=== PATIENT | female | born 1960 | race Caucasian/White ===

== ENCOUNTER → 2018-03-18 10:23 | Outpatient (CLI) | payer OTHER, SELFPAY ==
--- NOTE | 2018-03-18 10:27 | XR_ITS ---
XR knee LT 4V HISTORY: ITS.REASON: left knee pain ORDERING PHYSICIAN: Andrés Dewitt MD PATIENT AGE: 58 years COMPARISON: 12/10/2015 FINDINGS: No fracture or dislocation. No lytic or blastic change. Normal mineralization. No significant arthritic changes evident. No other significant findings IMPRESSION: Negative Knee
== END ==
PROVIDERS: PCP Internal Medicine Adolescent Medicine; Visit Provider Orthopaedic Surgery
DX: M25.562 Pain in left knee (principal)
CPT/HCPCS: 73564

== ENCOUNTER 2018-06-06 10:00 | Outpatient (RCR) | payer OTHER, SELFPAY ==
--- NOTE | 2018-04-11 11:08 | HMH.PTOPEV ---
PT Outpatient Evaluation Rehab PT Outpatient Evaluation Start: 04/11/18 10:56 Freq: Status: Active Protocol: Document 04/11/18 10:56 RAJINDER (Rec: 04/11/18 11:08 RAJINDER [id number]) Electronically Signed By Johnny Zeng, PT 04/11/18 10:56 Outpatient Therapy Subjective History Subjective History Pt reports h/o chronic L knee pain beginning ~2-3 yrs ago. Pt reports undergoing L knee plica resection sx. in 2016 and recent steriod injection, both of which ' improved symptoms'. Pt reports L knee, medial patellar area, with prolonged walking and TKE. Chief Complaint Pain Stiff Clicks Swelling Weakness Symptom Type Ache Dull Symptoms Relieved By OTC Meds Prescription Meds Symptoms Aggravated By Physical Activity Walking Prior Functional Limitations Recreation Activity Walking Stairs Current Functional Limitations Recreation Activity Walking Stairs Symptom Description Intermittent Level of pain today (0-10) 2 Pain scale - at its best (0-10) 0 Pain scale - at its worst (0-10) 4 Hip/Knee Eval Gait Observation General Gait Pattern Observation Antalgic Gait Assistive Device Assistive Devices None / NA Palpation Tenderness left Knee Palpation Finding Tenderness Knee Palpation Overall Comment 2/4-medial plica/sx. scar tissue MMT bilateral Hip Flexion Strength Grade 4 Good Hip Abduction Strength Grade 4- Good- Hip Adduction Strength Grade 4- Good- Hip Extension Strength Grade 4- Good- Hip External Rotation Strength Grade 4- Good- Hip Internal Rotation Strength Grade 4- Good- Knee Extension Strength Grade 5 Normal Knee Flexion Strength Grade 4 Good ROM Knee Flexion Active Range of Motion ( 0-155 degrees) Knee ROM Reason Not Measured Within Functional Limits Effusion joint effusion knee exam standard left Mid - Patellar Circumerential Measure ( 34 cm) Special Tests Patellar Grind Test Positive Left Outpatient Therapy Assessment Impairments Problems/Impairmments Palpation Tenderness
--- NOTE | 2018-05-30 10:20 | HMH.RHREAS ---
Rehab Reassessment Rehab OP Re-assessment Start: 05/30/18 10:13 Freq: Status: Active Protocol: Document 05/30/18 10:13 RAJINDER (Rec: 05/30/18 10:19 RAJINDER [id number]) Electronically Signed By Johnny Zeng, PT 05/30/18 10:13 Rehab Re-assessment Subjective Subjective PT REPORTS IMPROVED L LE STRENGTH, FEELS '75%' BETTER SINCE I EVAL. PT REPORTS 2/10 L KNEE PAIN AT REST,AND 4-5/10 L KNEE PAIN ON VAS FOLLOWING TREADMILL WALKING >1 MILE Objective Objective Notes AROM B KNEE FLX WFL MMT L HIP ABD/ADD/EXT 4-4+/5 TTP L KNEE MEDIAL JT LINE 1-2/ 4 CIRCUMFERENTIAL EDEMA L KNEE MID-PATELLA 34CM Assessment Progress Assessment Progressing as Expected Assessment Notes PT W/IMPROVED STRENGTH AND TTP Patient goals met STG'S 2/5 LTG'S 28 Goals Not Met STG'S 01/10, LTG'S 8 Plan Plan PT TO CONTINUE W/SKILLED P.T. TO MAKE FURTHER IMPROVEMENTS WITH STRENGTH, TTP, AND GAIT TO ALLOW FOR OPTIMAL FUNCTION Frequency of Therapy 1X/WK Duration of therapy 1-3WKS Time and Billing Re-Eval Time 15 Re-Eval Billing Units 1 PHYSICIAN CERTIFICATION: I certify the specified therapy services for Sarai Dalton are required, authorized, and reviewed every 30 days.
== END 2018-06-06 10:01 | disposition home or self-care (01) ==
LOC: PT 10:00
PROVIDERS: Family Provider Internal Medicine Adolescent Medicine; PCP Internal Medicine Adolescent Medicine; Visit Provider Orthopaedic Surgery
DX: M25.562 Pain in left knee (principal)
CPT/HCPCS: 97010; 97014; 97016; 97033; 97035; 97110; 97163; 97164; G0283

== ENCOUNTER → 2018-07-09 09:17 | Outpatient (CLI) | payer OTHER, SELFPAY ==
[2018-07-09 10:42] LABS: Alanine Aminotransferase 26 U/L (12-78); Albumin Level 3.8 gm/dL (3.4-5.0); Albumin/Globulin Ratio 1.3 (1.1-1.8); Alkaline Phosphatase 88 U/L (46-116); Anion Gap 8.6 mEq/L (5-15); Aspartate Amino Transferase 20 U/L (15-37); Bilirubin,Total 0.2 mg/dL (0.2-1.0); Blood Urea Nitrogen 13 mg/dL (7-18); Calcium 9.3 mg/dL (8.5-10.1); Carbon Dioxide 31 mmol/L (21.0-32.0); Chloride 107 mmol/L (98-107); Chol/HDL Ratio 2.7 (1-3.5); Cholesterol 197 mg/dL (140-200); Creatinine,Serum 0.88 mg/dL (0.55-1.02); Estimated Glomerular Filt Rate 66 ml/min (>60); Free T4 (Free Thyroxine) 1.11 ng/dl (0.76-1.46); GFR (African American) 79 ML/MIN (>60); Glucose 88 mg/dL (74-106); HDL Cholesterol 72 mg/dL (29-89); LDL Cholesterol 110 mg/dL (0-130); Potassium 4.6 mmoL/L (3.5-5.1); Sodium 142 mmol/L (136-145); Thyroid Stimulating Hormone 1.12 uIU/ml (0.358-3.740); Total Protein,Serum 6.8 gm/dL (6.4-8.2); Triglycerides 76 mg/dL (30-200); VLDL Cholesterol 15 mg/dL (0-40)
[2018-07-10 07:09] LABS: Vitamin B12 638 pg/mL (232-1245)
[2018-07-10 19:09] LABS: Triiodothyronine (T3) Free 2.3 pg/mL (2.0-4.4)
[2018-07-12 15:25] LABS: Vitamin D 25 Hydroxy 31.7 ng/mL (30.0-100.0)
== END ==
PROVIDERS: PCP Internal Medicine Adolescent Medicine; Visit Provider Internal Medicine Endocrinology, Diabetes & Metabolism
DX: E03.8 Other specified hypothyroidism (principal); M81.8 Other osteoporosis without current pathological fracture; E53.8 Deficiency of other specified B group vitamins; E55.9 Vitamin D deficiency, unspecified
CPT/HCPCS: 36415; 80053; 80061; 82607; 82652; 84439; 84443; 84481

== ENCOUNTER → 2019-07-14 08:35 | Outpatient (CLI) | payer OTHER, SELFPAY ==
[2019-07-14 10:34] LABS: Alanine Aminotransferase 21 U/L (12-78); Albumin/Globulin Ratio 1.3 (1.1-1.8); Alkaline Phosphatase 68 U/L (46-116); Anion Gap 10.3 mEq/L (5-15); Aspartate Amino Transferase 18 U/L (15-37); Bilirubin,Total 0.2 mg/dL (0.2-1.0); Blood Urea Nitrogen 13 mg/dL (7-18); Calcium 9.4 mg/dL (8.5-10.1); Carbon Dioxide 33 mmol/L (21.0-32.0); Chloride 107 mmol/L (98-107); Cholesterol 195 mg/dL (140-200); Creatinine,Serum 0.87 mg/dL (0.55-1.02); Estimated Glomerular Filt Rate 66 ml/min (>60); Free T4 (Free Thyroxine) 1.07 ng/dl (0.76-1.46); GFR (African American) 80 ML/MIN (>60); Glucose 89 mg/dL (74-106); HDL Cholesterol 65 mg/dL (29-89); LDL Cholesterol 110 mg/dL (0-130); Potassium 4.3 mmoL/L (3.5-5.1); Sodium 146 mmol/L (136-145); T4 (Thyroxine) 10.5 ug/dl (4.7-13.3); Thyroid Stimulating Hormone 2.05 uIU/ml (0.358-3.740); Triglycerides 102 mg/dL (30-200); VLDL Cholesterol 20 mg/dL (0-40)
[2019-07-15 18:07] LABS: Triiodothyronine (T3) Free 2.5 pg/mL (2.0-4.4); Vitamin B12 448 pg/mL (232-1245); Vitamin D 25 Hydroxy 33.9 ng/mL (30.0-100.0)
== END ==
PROVIDERS: Visit Provider Internal Medicine Endocrinology, Diabetes & Metabolism
DX: E03.8 Other specified hypothyroidism (principal); E53.8 Deficiency of other specified B group vitamins; E55.9 Vitamin D deficiency, unspecified
CPT/HCPCS: 36415; 80053; 80061; 82607; 82652; 84436; 84439; 84443; 84481

== ENCOUNTER → 2019-12-25 08:29 | Outpatient (CLI) | payer OTHER, SELFPAY ==
--- NOTE | 2019-12-25 08:35 | MM_ITS ---
PROCEDURE: MM DIG SCREENING MAMM BI W/CAD CLINICAL INDICATION: SCREENING' There is a history of breast cancer patient's mother diagnosed after menopause and the patient's maternal aunt diagnosed after menopause. COMPARISON: Digital mammograms with CAD 03/27/2016 and 02/21/2014 TECHNIQUE: standard CC and MLO images and 3D Tomosynthesis was obtained. R2 CAD reviewed. FINDINGS: Moderate scattered fibroglandular densities are seen throughout both breasts and the findings are bilateral and symmetrical. There is no suspicious lesion and no suspicious microcalcifications. Ranjan images were reviewed. IMPRESSION: Moderate diffuse breast density with no suspicious lesions seen BI-RAD Category: 2 Benign Finding(s) FOLLOW-UP: 1YR 1 Year Follow-up (A letter has been sent to the patient regarding results of the study.) Dictated by: Dr. Bogdan Calderon MD 12/25/2019 14:[address] Bogdan Calderon MD in [place] 12/25/2019 14:51
== END ==
PROVIDERS: PCP Internal Medicine Adolescent Medicine; Visit Provider Internal Medicine Adolescent Medicine
DX: Z12.31 Encounter for screening mammogram for malignant neoplasm of breast (principal)
CPT/HCPCS: 77063; 77067

== ENCOUNTER → 2020-05-16 07:46 | Outpatient (CLI) | payer OTHER, SELFPAY ==
[2020-05-16 08:35] LABS: Basophils % 0.7 % (0.1-2.0); Eosinophils # 0.1 K/mm3 (0.0-0.4); Eosinophils % 1.2 % (0.1-12.0); Hematocrit 41.3 % (37.0-47.0); Hemoglobin 13.9 g/dL (12.2-16.2); Lymphocytes # 1.6 K/mm3 (0.7-4.5); Mean Corpuscular HGB Conc 33.7 g/dL (31.8-35.4); Mean Corpuscular Hemoglobin 30.5 pg (27.0-31.2); Mean Corpuscular Volume 90.6 fl (81-99); Mean Platelet Volume 8.1 fl (7.4-10.4); Monocytes # 0.2 K/mm3 (0.1-1.0); Monocytes % 5.5 % (1.7-9.3); Neutrophils # 2.2 K/mm3 (1.8-7.8); Neutrophils % 53.5 % (37.0-80.0); Platelet Count 164 K/mm3 (142-424); Red Blood Count 4.56 M/mm3 (4.20-5.40); White Blood Count 4.2 K/mm3 (4.8-10.8)
[2020-05-16 09:13] LABS: Chloride 105 mmol/L (98-107); Sodium 140 mmol/L (136-145)
[2020-05-16 09:14] LABS: Potassium 4.1 mmoL/L (3.5-5.1)
[2020-05-16 09:16] LABS: Alanine Aminotransferase 14 U/L (12-78); Albumin/Globulin Ratio 1.7 (1.1-1.8); Alkaline Phosphatase 62 U/L (38-126); Anion Gap 7.1 mEq/L (5-15); Aspartate Amino Transferase 27 U/L (14-36); Bilirubin,Total 0.3 mg/dl (0.2-1.3); Blood Urea Nitrogen 15 mg/dl (7-17); Carbon Dioxide 32 mmol/L (22.0-30.0); Cholesterol 185 mg/dl (140-200); Estimated Glomerular Filt Rate 63 ml/min (>60); GFR (African American) 77 ML/MIN (>60); Globulin 2.4 g/dL (1.3-3.2); Total Protein,Serum 6.4 g/dl (6.3-8.2); Triglycerides 84 mg/dl (30-150); VLDL Cholesterol 17 mg/dL (0-40)
[2020-05-16 09:17] LABS: Calcium 9.5 mg/dl (8.4-10.2); Chol/HDL Ratio 2.5 (1-3.5); Glucose 76 mg/dl (74-100); HDL Cholesterol 75 mg/dl (40-60)
[2020-05-16 09:28] LABS: Direct LDL Cholesterol 94.24 mg/dL (100-129)
[2020-05-16 09:32] LABS: Free T4 (Free Thyroxine) 1.16 ng/dl (0.78-2.19)
[2020-05-16 09:47] LABS: Thyroid Stimulating Hormone 2.71 uIU/mL (0.465-4.68)
[2020-05-16 09:51] LABS: 25-OH Vitamin D, Total 75.1 ng/mL (30-100)
[2020-05-18 08:50] LABS: Triiodothyronine (T3) Free 2.5 pg/mL (2.0-4.4)
[2020-05-21 11:20] LABS: T4 (Thyroxine) 7.3 ug/dl (5.53-11.0)
[2020-05-24 17:11] LABS: C-Telopeptide Serum 532 pg/mL (.)
== END ==
PROVIDERS: Visit Provider Internal Medicine Endocrinology, Diabetes & Metabolism
DX: E03.8 Other specified hypothyroidism (principal); E55.9 Vitamin D deficiency, unspecified; M81.8 Other osteoporosis without current pathological fracture
CPT/HCPCS: 36415; 80053; 80061; 82306; 82523; 84436; 84439; 84443; 84481; 84681; 85025

== ENCOUNTER → 2021-01-22 09:08 | Outpatient (CLI) | payer OTHER, SELFPAY ==
[2021-01-22 10:46] LABS: Free T4 (Free Thyroxine) 1.25 ng/dl (0.78-2.19)
[2021-01-22 10:47] LABS: 25-OH Vitamin D, Total 61.2 ng/mL (30-100)
[2021-01-22 11:00] LABS: Thyroid Stimulating Hormone 1.28 uIU/mL (0.465-4.68)
[2021-01-23 11:39] LABS: Triiodothyronine (T3) Free 2.1 pg/mL (2.0-4.4)
== END ==
PROVIDERS: Visit Provider Internal Medicine Adolescent Medicine
DX: E03.9 Hypothyroidism, unspecified (principal); E55.9 Vitamin D deficiency, unspecified
CPT/HCPCS: 36415; 82306; 84436; 84439; 84443; 84481

== ENCOUNTER → 2021-01-27 09:30 | Outpatient (CLI) | payer OTHER, SELFPAY | PROVIDERS: PCP Internal Medicine Adolescent Medicine; Visit Provider Orthopaedic Surgery | DX: Z20.822 Contact with and (suspected) exposure to COVID-19 (principal) | CPT/HCPCS: U0003 ==

== ENCOUNTER → 2021-07-10 08:47 | Outpatient (CLI) | payer OTHER, SELFPAY ==
--- NOTE | 2021-07-10 08:49 | XR_ITS ---
PROCEDURE: XR DEXA AXIAL SKELETON CLINICAL HISTORY: OSTEOPENIA AFTER MENOPAUSE COMPARISON: CR BONE3 BONE DENSITOMETRY(HIP:LT SPINE from 07/02/2017 FINDINGS: The right hip BMD is 0.556 with a T-score of -2.6. The left hip BMD is 0.561 with a T-score of -2.6. The lumbar spine BMD is 0.853 with a T-score of -1.8. Previously the lowest density was in the left hip with a T-score of -2.3 IMPRESSION: This patient is considered osteoporotic according to the World Health Organization criteria. Fracture risk is high. Treatment is advised. Based on these results a follow-up exam is recommended in 1 year. Dictated by: Alonso Duvall MD 07/10/2021 15:56 Alonso Duvall MD in [facility] 07/10/2021 15:56
== END ==
PROVIDERS: PCP Internal Medicine Adolescent Medicine; Visit Provider Internal Medicine Endocrinology, Diabetes & Metabolism
DX: M85.80 Other specified disorders of bone density and structure, unspecified site (principal)
CPT/HCPCS: 77080

== ENCOUNTER → 2021-07-24 08:00 | Outpatient (CLI) | payer OTHER, SELFPAY ==
[2021-07-24 09:56] LABS: Free T4 (Free Thyroxine) 1.31 ng/dl (0.78-2.19)
[2021-07-24 09:59] LABS: 25-OH Vitamin D, Total 62.5 ng/mL (30-100)
[2021-07-24 10:12] LABS: Thyroid Stimulating Hormone 2.03 uIU/mL (0.465-4.68)
[2021-07-25 10:45] LABS: Triiodothyronine (T3) Free 2.4 pg/mL (2.0-4.4)
== END ==
PROVIDERS: Visit Provider Internal Medicine Endocrinology, Diabetes & Metabolism
DX: E03.9 Hypothyroidism, unspecified (principal); E55.9 Vitamin D deficiency, unspecified
CPT/HCPCS: 36415; 82306; 84439; 84443; 84481

== ENCOUNTER → 2021-10-10 10:16 | Outpatient (CLI) | payer OTHER, SELFPAY ==
--- NOTE | 2021-10-10 10:23 | MM_ITS ---
PROCEDURE INFORMATION: Exam: MG Bilateral Screening 3D Mammography Exam date and time: 10/10/2021 10:23 AM Age: 61 years old Clinical indication: Encounter for screening mammogram for malignant neoplasm of breast. Positive family history of breast cancer: Mother and aunt TECHNIQUE: Imaging protocol: Bilateral screening tomosynthesis and 2D mammography including computer-aided detection (CAD) when performed. COMPARISON: 1. MG MM DIG SCREENING MAMM BI W/CAD 12/25/2019 8:43 AM 2. MG DMSB DIG MAMM-SCREEN FLORA 03/27/2016 10:28 AM FINDINGS: MAMMOGRAPHY: Breast composition: The breast tissue is composed of scattered areas of fibroglandular density. Mass: None. Architectural distortion: None. Calcifications: No suspicious calcifications. Asymmetric density: None. Skin thickening: None. Axillary adenopathy: None. IMPRESSION: No mammographic evidence of malignancy. Annual screening is recommended unless otherwise clinically indicated. ASSESSMENT: BI-RADS Category 1: Negative
== END ==
PROVIDERS: PCP Internal Medicine Adolescent Medicine; Visit Provider Internal Medicine Adolescent Medicine
DX: Z12.31 Encounter for screening mammogram for malignant neoplasm of breast (principal)
CPT/HCPCS: 77063; 77067

== ENCOUNTER → 2021-10-15 13:54 | Outpatient (CLI) | payer OTHER, SELFPAY | PROVIDERS: PCP Internal Medicine Adolescent Medicine; Visit Provider Nurse Practitioner | DX: Z20.822 Contact with and (suspected) exposure to COVID-19 (principal) | CPT/HCPCS: C9803; U0003; U0005 ==

== ENCOUNTER → 2021-10-16 11:21 | Outpatient (CLI) | payer OTHER, SELFPAY | PROVIDERS: PCP Internal Medicine Adolescent Medicine; Visit Provider Nurse Practitioner | DX: Z20.822 Contact with and (suspected) exposure to COVID-19 (principal) | CPT/HCPCS: C9803; U0003; U0005 ==

== ENCOUNTER → 2022-07-17 08:51 | Outpatient (CLI) | payer OTHER, SELFPAY ==
--- NOTE | 2022-07-17 08:58 | XR_ITS ---
FINAL REPORT TECHNIQUE: Bone densitometry calculations of the lumbar spine and left hip were obtained. CLINICAL HISTORY: . post menopausal COMPARISON: July 10, 2021 FINDINGS: DEXA BONE DENSITY AXIAL SKELETON Using L1-4, the bone mineral density of the spine is 0.896 g/cm2, corresponding to T-score of -1.4. Previously measured 0.853 g/cm2, corresponding to T-score of -1.8. Using the left hip, the bone mineral density of the femoral neck is 0.614 g/cm2, corresponding to a T-score of -2.7. Previously measured 0.561 g/cm2, corresponding to T-score of -2.6. NOTE: T-score: Standard deviation compared with peak bone mass of young adult mean. *Following the recommendations of the International Society of Bone Densitometry, classification of hip BMD is based on the lower of two T-scores; total hip or femoral neck. IMPRESSION: Osteoporosis: Lowest T-score is at or below -2.5. This patient's T-score meets the World Health Organization criteria for osteoporosis. These findings are stable since the prior exam. Reviewed, Interpreted and Dictated by Armando Cohen III, MD Transcribed by Natalia Finn Authenticated and [facility]
== END ==
PROVIDERS: PCP Internal Medicine Adolescent Medicine; Visit Provider Internal Medicine Endocrinology, Diabetes & Metabolism
DX: M81.0 Age-related osteoporosis without current pathological fracture (principal); E55.9 Vitamin D deficiency, unspecified; E03.9 Hypothyroidism, unspecified
CPT/HCPCS: 77080

== ENCOUNTER → 2022-07-23 08:53 | Outpatient (CLI) | payer OTHER, SELFPAY ==
[2022-07-23 10:29] LABS: Alanine Aminotransferase 13 U/L (12-78); Albumin Level 3.9 g/dl (3.5-5.0); Albumin/Globulin Ratio 1.6 (1.1-1.8); Alkaline Phosphatase 75 U/L (38-126); Anion Gap 13.9 mEq/L (5-15); Aspartate Amino Transferase 23 U/L (14-36); Blood Urea Nitrogen 11 mg/dl (7-17); Calcium 9.2 mg/dl (8.4-10.2); Carbon Dioxide 30 mmol/L (22.0-30.0); Chloride 103 mmol/L (98-107); Estimated Glomerular Filt Rate 84 ml/min (>60); GFR (African American) 102 ML/MIN (>60); Globulin 2.4 g/dL (1.3-3.2); Glucose 83 mg/dl (74-100); Potassium 3.9 mmoL/L (3.5-5.1); Sodium 143 mmol/L (136-145); Total Protein,Serum 6.3 g/dl (6.3-8.2)
[2022-07-23 10:34] LABS: Bilirubin,Total < 0.1 mg/dl (0.2-1.3)
[2022-07-23 10:44] LABS: 25-OH Vitamin D, Total 55.2 ng/mL (30-100)
[2022-07-23 10:45] LABS: Free T4 (Free Thyroxine) 1.17 ng/dl (0.78-2.19)
[2022-07-23 11:01] LABS: Thyroid Stimulating Hormone 2.07 uIU/mL (0.465-4.68)
[2022-07-24 09:15] LABS: Triiodothyronine (T3) Free 2.5 pg/mL (2.0-4.4)
== END ==
PROVIDERS: PCP Internal Medicine Adolescent Medicine; Visit Provider Internal Medicine Endocrinology, Diabetes & Metabolism
DX: E03.9 Hypothyroidism, unspecified (principal); E55.9 Vitamin D deficiency, unspecified; M81.0 Age-related osteoporosis without current pathological fracture
CPT/HCPCS: 36415; 80053; 82306; 84439; 84443; 84481

== ENCOUNTER → 2023-01-11 08:14 | Outpatient (CLI) | payer OTHER, SELFPAY ==
--- NOTE | 2023-01-11 08:23 | MM_ITS ---
PROCEDURE INFORMATION: Exam: MG Bilateral Screening 3D Mammography Exam date and time: 01/11/2023 8:26 AM Age: 62 years old Clinical indication: Screening examination TECHNIQUE: Imaging protocol: Bilateral Screening tomosynthesis and 2D mammography including computer-aided detection (CAD) when performed. COMPARISON: 1. MG MM DIG SCREENING MAMM BI W/CAD 10/10/2021 10:24 AM 2. MG MM DIG SCREENING MAMM BI W/CAD 12/25/2019 8:43 AM FINDINGS: MAMMOGRAPHY: Breast composition: There are scattered areas of fibroglandular density. Mass: None. Architectural distortion: None. Calcifications: No suspicious calcifications. Asymmetric density: None. Skin thickening: None. Axillary adenopathy: None. IMPRESSION: No mammographic evidence of malignancy. Annual screening is recommended unless otherwise clinically indicated. ASSESSMENT: BI-RADS Category 1: Negative
== END ==
PROVIDERS: PCP Internal Medicine Adolescent Medicine; Visit Provider Internal Medicine Adolescent Medicine
DX: Z12.31 Encounter for screening mammogram for malignant neoplasm of breast (principal)
CPT/HCPCS: 77063; 77067

== ENCOUNTER → 2023-08-04 09:04 | Outpatient (CLI) | payer MEDICARE, OTHER, SELFPAY ==
--- NOTE | 2023-08-04 09:46 | XR_ITS ---
FINAL REPORT TECHNIQUE: Bone densitometry calculations of the lumbar spine and left hip were obtained. CLINICAL HISTORY: osteoporosis, POST MENOPAUSAL COMPARISON: July 17, 2022 FINDINGS: Using L1-4, the bone mineral density of the spine is 0.866 g/cm2, corresponding to T-score of -1.6 and a Z score of 0.1. This is within the range of osteopenia. Worse from prior. Using the left hip, the bone mineral density of the femoral neck is 0.567 g/cm2, corresponding to a T-score of -3.1 and a Z-score of -1.8. This is within the range of osteoporosis. Worsened from prior. Using the right hip, the bone mineral density of the femoral neck is 0.547 g/cm2, corresponding to a T-score of -2.7 and a Z-score of -1.1. This is within the range of osteoporosis. Worsened from prior. NOTE: T-score: Standard deviation compared with peak bone mass of young adult mean. *Following the recommendations of the International Society of Bone densitometry, classification of hip BMD is based on the lower of two T-scores; total hip or femoral neck. IMPRESSION: 1. Bone mineral density of the lumbar spine within the range of osteopenia. 2. Bone mineral density of the bilateral hip within the range of osteoporosis. All findings are worse as compared to prior exam Reviewed, Interpreted and Dictated by Marylou Edmondson MD Transcribed by Darian Reddy Authenticated and . [facility]
== END ==
PROVIDERS: PCP Internal Medicine Adolescent Medicine; Visit Provider Internal Medicine Adolescent Medicine
DX: Z78.0 Asymptomatic menopausal state (principal); Z13.820 Encounter for screening for osteoporosis
CPT/HCPCS: 77080

== ENCOUNTER → 2023-08-09 07:29 | Outpatient (CLI) | payer MEDICARE, OTHER, SELFPAY ==
[2023-08-09 10:11] LABS: 25-OH Vitamin D, Total 75.4 ng/mL (30-100)
[2023-08-09 10:31] LABS: Chloride 108 mmol/L (98-107)
[2023-08-09 10:32] LABS: Potassium 4.3 mmoL/L (3.5-5.1); Sodium 142 mmol/L (136-145)
[2023-08-09 10:34] LABS: Alanine Aminotransferase 15 U/L (12-78); Alkaline Phosphatase 66 U/L (38-126); Anion Gap 8.3 mEq/L (5-15); Aspartate Amino Transferase 24 U/L (14-36); Blood Urea Nitrogen 14 mg/dl (7-17); Carbon Dioxide 30 mmol/L (22.0-30.0); Estimated Glomerular Filt Rate 72 ml/min (>60); GFR (African American) 87 ML/MIN (>60)
[2023-08-09 10:35] LABS: Albumin Level 3.7 g/dl (3.5-5.0); Albumin/Globulin Ratio 1.7 (1.1-1.8); Calcium 8.9 mg/dl (8.4-10.2); Globulin 2.2 g/dL (1.3-3.2); Glucose 85 mg/dl (74-100); Phosphorous 4.4 mg/dl (2.5-4.5); Total Protein,Serum 5.9 g/dl (6.3-8.2)
[2023-08-09 10:40] LABS: Bilirubin,Total < 0.1 mg/dl (0.2-1.3)
[2023-08-09 11:01] LABS: Thyroid Stimulating Hormone 2.41 uIU/mL (0.465-4.68)
[2023-08-09 11:57] LABS: Magnesium 1.9 mg/dl (1.6-2.3)
[2023-08-10 10:58] LABS: Triiodothyronine (T3) Free 2.4 pg/mL (2.0-4.4)
[2023-08-16 00:06] LABS: C-Telopeptide Serum 687 pg/mL (.)
== END ==
PROVIDERS: PCP Internal Medicine Adolescent Medicine; Visit Provider Internal Medicine Endocrinology, Diabetes & Metabolism
DX: E03.9 Hypothyroidism, unspecified (principal); E55.9 Vitamin D deficiency, unspecified; M81.0 Age-related osteoporosis without current pathological fracture
CPT/HCPCS: 36415; 80053; 82306; 82523; 83735; 84100; 84439; 84443; 84481

== ENCOUNTER 2023-11-09 08:57 | Outpatient (CLI) | payer MEDICARE, OTHER, SELFPAY ==
[2023-11-09] MEDS: DENOSUMAB 60 MG/ML SYRINGE SQ (09:17)
[2023-11-09 09:30] VITALS: BP 133/84; PULSE 78; RESP 18; TEMP 36.9; O2SAT 99
== END 2023-11-09 09:30 | disposition home or self-care (01) ==
LOC: INF 08:59
PROVIDERS: PCP Internal Medicine Adolescent Medicine; Visit Provider Internal Medicine Adolescent Medicine
DX: M81.0 Age-related osteoporosis without current pathological fracture (principal)
CPT/HCPCS: 96372; J0897

== ENCOUNTER 2024-05-10 08:52 | Outpatient (CLI) | payer MEDICARE, OTHER, SELFPAY ==
[2024-05-10 09:00] VITALS: BP 116/75; PULSE 82; RESP 18; TEMP 36.8; O2SAT 100
[2024-05-10] MEDS: DENOSUMAB 60 MG/ML SYRINGE SQ (09:01)
== END 2024-05-10 09:07 | disposition home or self-care (01) ==
LOC: INF 08:53
PROVIDERS: PCP Internal Medicine Adolescent Medicine; Visit Provider Internal Medicine Adolescent Medicine
DX: M81.0 Age-related osteoporosis without current pathological fracture (principal); Z79.620 Long term (current) use of immunosuppressive biologic
CPT/HCPCS: 96372; J0897

== ENCOUNTER 2024-08-04 08:49 | Outpatient (CLI) | payer MEDICARE, OTHER, SELFPAY ==
--- NOTE | 2024-08-04 08:52 | XR_ITS ---
FINAL REPORT TECHNIQUE: Bone densitometry calculations of the lumbar spine and left hip were obtained. CLINICAL HISTORY: SCREENING FINDINGS: Using L1-4, the bone mineral density of the spine is 0.90 g/cm2, corresponding to T-score of -1.3 Using the left hip, the bone mineral density of the femoral neck is 0.63 g/cm2, corresponding to a T-score of -2.5. Using the right hip, the bone mineral density of the femoral neck is 0.71 g/cm2, corresponding to a T-score of - 1.9. NOTE: T-score: Standard deviation compared with peak bone mass of young adult mean. *Following the recommendations of the International Society of Bone densitometry, classification of hip BMD is based on the lower of two T-scores; total hip or femoral neck. IMPRESSION: Diminished bone mineral density of the lumbar spine and right hip consistent with osteopenia. Osteoporosis of the left hip. Reviewed, Interpreted and Dictated by Josie Thomas MD Transcribed by Socorro Dominguez Authenticated and [facility]
== END 2024-08-04 23:59 | disposition home or self-care (01) ==
LOC: RAD 08:49
PROVIDERS: PCP Internal Medicine Adolescent Medicine; Visit Provider Internal Medicine Endocrinology, Diabetes & Metabolism
DX: M81.0 Age-related osteoporosis without current pathological fracture (principal)
CPT/HCPCS: 77080

== ENCOUNTER 2024-08-11 08:44 | Outpatient (CLI) | payer MEDICARE, OTHER, SELFPAY ==
[2024-08-11 09:59] LABS: Alanine Aminotransferase 21 U/L (12-78); Albumin Level 4.2 g/dl (3.5-5.0); Alkaline Phosphatase 61 U/L (38-126); Anion Gap 5.2 mEq/L (5-15); Aspartate Amino Transferase 31 U/L (14-36); Bilirubin,Total 0.4 mg/dl (0.2-1.3); Blood Urea Nitrogen 12 mg/dl (7-17); Calcium 9.8 mg/dl (8.4-10.2); Carbon Dioxide 32 mmol/L (22.0-30.0); Chloride 107 mmol/L (98-107); Estimated Glomerular Filt Rate 72 ml/min (>60); GFR (African American) 87 ML/MIN (>60); Globulin 2.1 g/dL (1.3-3.2); Glucose 85 mg/dl (74-100); Potassium 4.2 mmoL/L (3.5-5.1); Sodium 140 mmol/L (136-145); Total Protein,Serum 6.3 g/dl (6.3-8.2)
[2024-08-11 10:17] LABS: Free T4 (Free Thyroxine) 1.17 ng/dl (0.78-2.19)
[2024-08-11 10:18] LABS: 25-OH Vitamin D, Total 77.5 ng/mL (30-100)
[2024-08-11 10:32] LABS: Thyroid Stimulating Hormone 1.73 uIU/mL (0.465-4.68)
[2024-08-12 08:19] LABS: Triiodothyronine (T3) Free 2.9 pg/mL (2.0-4.4)
== END 2024-08-11 23:59 | disposition home or self-care (01) ==
LOC: LAB 08:49
PROVIDERS: PCP Internal Medicine Adolescent Medicine; Visit Provider Internal Medicine Endocrinology, Diabetes & Metabolism
DX: E03.9 Hypothyroidism, unspecified (principal); M81.0 Age-related osteoporosis without current pathological fracture; E55.9 Vitamin D deficiency, unspecified
CPT/HCPCS: 36415; 80053; 82306; 84439; 84443; 84481

== ENCOUNTER 2024-11-24 10:01 | Outpatient (CLI) | payer MEDICARE, OTHER, SELFPAY ==
[2024-11-24 10:10] VITALS: BP 121/72; PULSE 79; RESP 18; TEMP 36.3; O2SAT 98
[2024-11-24] MEDS: DENOSUMAB 60 MG/ML SYRINGE SUBCUT (10:15)
== END 2024-11-24 10:20 | disposition home or self-care (01) ==
LOC: INF 10:02
PROVIDERS: PCP Internal Medicine Adolescent Medicine; Visit Provider Internal Medicine Adolescent Medicine
DX: M81.0 Age-related osteoporosis without current pathological fracture (principal)
CPT/HCPCS: 96372; J0897

== ENCOUNTER 2025-05-25 09:58 | Outpatient (CLI) | payer MEDICARE, OTHER, SELFPAY ==
--- OUTSIDE RECORDS SUMMARY | 2025-02-10 17:30 | XMS_ITS ---
Author Organization [facility] Address [address] [place] [address] Care Team Providers Care Wire Threader Name Role Phone PeymanKendall Primary Care Provider Migration, Provider Unavailable Unavailable Allergies Allergen (clinical drug ingredient) Drug/Non Drug Allergy documented on EMR Reaction Allergy Type Onset Date Status povidone-iodine Betadine Unknown Drug Allergy A ctive REASON FOR VISIT [facility] To [facility] Conversion Encounter Medications Medication SIG (Take, Route, Frequency, Duration) Notes Start Date End Date Status LaMICtal 25 MG take 3 tablets twice a day orally 2 times a day; Duration: 90 days Active Medrol 4 MG as directed orally a s directed; Duration: 5 days 11/27/2024 Active Amoxicillin 875 MG 1 tab(s) orally 2 times a day; Duration: 10 day(s) 11/27/2024 Active Losartan Potassium 50 MG 1 tab(s) orally once a day; Duration: 90 days Active Noxswcrupd-ZBOT-Jfaq eine 50-325-40 MG 2 tabs orally twice a day; Duration: 90 days prn 10/23/2024 Active EpiPen 2-Meclhor 0.3 MG/0.3ML as directed intramuscularly once; Duration: 1 days 04/19/2024 Active Prolia 60 MG/ML as directed subcutaneously every 6 months; Duration: 12 days 10/18/2023 Active Ibuprofen 800 MG 1 tab(s) orally 3 times a day; Duration: 90 days Active Ambien 5 MG 1 tab(s) orally once a day (at bedtime); Duration: 90 days prn 04/14/2023 Active Synthroid 100 MCG 1 tab(s) orally once a day; Duration: 90 days Active Acyclovir 800 MG 1 tab(s) orally 5 times a day prn; Duration: 90 days prn 10/16/2015 Active Pepcid 20 MG 1 tab(s) orally 2 times a day; Duration: 90 days prn Active ZyrTEC Allergy 10 MG 1 tab(s) orally onc e a day prn; Duration: 90 days Active Flonase Allergy Relief 50 MCG/ACT 2 sprays intranasally once a day; Duration: 90 days 10/16/2015 Active Calcium Citrate 600-630MG 1 TAB(S) ORALLY 2 TIMES A DAY; Duration: 90 DAYS *Please review and pick correct strength-formulat ion from [employer] options. If intended option is not shown, discontinue and re-order from Quick Search* Active Vitamin D3 25 MCG 1 tab(s) orally once a day; Duration: 90 days Active PATADAY ONCE DAILY RELIEF 0.2% 1 GTT IN EACH AFFECTED EYE ONCE A DAY prn *Please review for potential replacement for e-prescription and drug interaction check* Active Centrum THERAPEUTIC MULTIPLE VITAMINS WITH MINERALS 1 TAB(S) ORALLY ONCE A DAY *Please review and pick correct strength-formulat ion from [employer] options. If intended option is not shown, discontinue and re-order from Quick Search* Active Acetaminophen ER 650 MG 1 tab orally prn Active Voltaren Arthritis Pain 1 % as directed applied topically 1-2 times a day Active Encounters Encounter Location Date Provider Diagnosis [facility] [place] [address] [facility] [address] [place] [address] 02/10/2025 Provider Migration Acute non-recurrent maxillary sinusitis J01.00 and Primary hypertension I10 Assessments Encounter Date Diagnosis (ICD Code) Assessment Notes Treatment Notes Treatment Clinical Notes Section Notes 02/10/2025 Acute non-recurrent maxillary sinusitis (ICD-10 - J01.00) 02/10/2025 Primary hypertension (ICD-10 - I10) Plan Of Treatment Medication Medication Name Sig Start Date Stop Date Notes Medrol 4 MG as directed orally a s directed; Duration: 5 days 11/27/2024 Amoxicillin 875 MG 1 tab(s) orally 2 ti mes a day; Duration: 10 day(s) 11/27/2024 Losartan Potassium 50 MG 1 tab(s) orally once a day; Duration: 90 days Next Appt Details Provider Name:Kendall Lamb Montykristi, 10/29/2025 09:00:00 AM, [address], [place], [address], Progress Notes * Asim ORDONEZOB: [birth year] (65 yo F)Acc No.[id number]:02/10/2025 Patient: Sarai WOOTEN Provider: Vania sims Migration :1960 A ge:64 Y S ex:Female Date:02/10/2025 Address:[address] [place] [address], [place], [id number] Pcp:Kendall Morley Subjective: * Chief Complaints: * [facility] . [facility] * Medical History: * Medications: T terry Voltaren Arthritis Pain 1 % Gel as directed applied topically 1-2 times a day , Taking Acetaminophen ER 650 MG Tablet Extended Release 1 tab orally prn , Taking Centrum THERAPEUTIC MULTIPLE VITAMINS WITH MINERALS TABLET 1 TAB(S) ORALLY ONCE A DAY , Notes to Pharmacist: *Please review and pick correct strength-formulation from [email or web address].despan options. If intended option is not shown, discontinue and re-order from Quick Search*, Taking PATADAY ONCE DAILY RELIEF 0.2% SOLUTION 1 GTT IN EACH AFFECTED EYE ONCE A DAY , Notes to Pharmacist: prn *Please review for potential replacement for e-prescription and drug interaction check*, Taking Vitamin D3 25 MCG Capsule 1 tab(s) orally once a day , Taking Calcium Citrate 600-630MG TABLET 1 TAB(S) ORALLY 2 TIMES A DAY , Notes to Pharmacist: *Please review and pick correct strength-formulation from [email or web address].despan options. If intended option is not shown, discontinue and re-order from Quick Search*, Taking Flonase Allergy Relief 50 MCG/ACT Suspension 2 sprays intranasally once a day , Taking ZyrTEC Allergy 10 MG Tablet 1 tab(s) orally once a day prn , Taking Pepcid 20 MG Tablet 1 tab(s) orally 2 times a day , Notes to Pharmacist: prn, Taking Acyclovir 800 MG Tablet 1 tab(s) orally 5 times a day prn , Notes to Pharmacist: prn, Taking Synthroid 100 MCG Tablet 1 tab(s) orally once a day , Taking Ambien 5 MG Tablet 1 tab(s) orally once a day (at bedtime) , Notes to Pharmacist: prn, Taking Ibuprofen 800 MG Tablet 1 tab(s) orally 3 times a day , Taking Prolia 60 MG/ML Solution Prefilled Syringe as directed subcutaneously every 6 months , Taking EpiPen 2-Melchor 0.3 MG/0.3ML Solution Auto-injector as directed intramuscularly once , Taking LaMICtal 25 MG Tablet take 3 tablets twice a day orally 2 times a day , Taking Ajayevgufb-JDKB-Hmioovgp 50-325-40 MG Tablet 2 tabs orally twice a day , Notes to Pharmacist: prn * Allergies: B etadine. Objective: * Vitals: Assessment: * Assessment: 1. A cute non-recurrent maxillary sinusitis - J01.00 (Primary) 2 . P rimary hypertension - I10 Plan: * Treatment: 2. P rimary hypertension Start Losartan Potassium Tablet, 50 MG, 1 tab(s), orally, once a day, 90 days, 90, Refills 1. ? * * Electronic signature of Prov ider Migration on 05/25/2025 at 10:02 AM EDT Sign off status: Pending * Provider: Vania sims Migration Date: 0 02/10/2025 Generated for Kana rees/John/Tonya on: 0 05/25/2025 10:02 AM EDT
--- OUTSIDE RECORDS SUMMARY | 2025-04-25 05:00 | XMS_ITS ---
Author Organization [facility] [place] Address [address] [place] [address] Care Team Providers Care Hollow Handle Knife Assembler Name Role Phone Kendall Morley Primary Care Provider Allergies Allergen (clinical drug ingredient) Drug/Non Drug Allergy documented on EMR Reaction Allergy Type Onset Date Status povidone-iodine Betadine Unknown Drug Allergy A ctive REASON FOR VISIT 6 month check up Medications Medication SIG (Take, Route, Frequency, Duration) Notes Start Date End Date Status LaMICtal 25 MG take 3 tablets twice a day orally 2 times a day; Duration: 90 days Active Cseyyvgomv-EJID-Xqab eine 50-325-40 MG 2 tabs orally twice a day; Duration: 90 days As needed prn 10/23/2024 Active Losartan Potassium 50 MG 1 tab(s) orally once a day; Duration: 90 days Active Terbinafine HCl 250 MG 1 tablet Orally Once a day; Duration: 90 days 04/25/2025 Active Ciprofloxacin-dexAME THasone 0.3-0.1 % 4 drops into affected ear Otic Twice a day; Duration: 7 days 04/25/2025 Active Ambien 5 MG 1 tab(s) orally once a day (at bedtime); Duration: 90 days prn 04/14/2023 Active Prolia 60 MG/ML as directed subcutaneously every 6 months; Duration: 12 days 10/18/2023 Active EpiPen 2-Melchor 0.3 MG/0.3ML as directed intramuscularly once; Duration: 1 days 04/19/2024 Active Acyclovir 800 MG 1 tab(s) orally 5 times a day prn; Duration: 90 days prn 10/16/2015 Active Synthroid 100 MCG 1 tab(s) orally once a day; Duration: 90 days Active Flonase Allergy Relief 50 MCG/ACT 2 sprays intranasally once a day; Duration: 90 days 10/16/2015 Active ZyrTEC Allergy 10 MG 1 tab(s) orally onc e a day prn; Duration: 90 days Active Pepcid 20 MG 1 tab(s) orally 2 times a day; Duration: 90 days prn Active Acetaminophen ER 650 MG 1 tab orally prn Active Centrum THERAPEUTIC MULTIPLE VITAMINS WITH MINERALS 1 TAB(S) ORALLY ONCE A DAY *Please review and pick correct strength-formulat ion from [employer] options. If intended option is not shown, discontinue and re-order from Quick Search* Active PATADAY ONCE DAILY RELIEF 0.2% 1 GTT IN EACH AFFECTED EYE ONCE A DAY prn *Please review for potential replacement for e-prescription and drug interaction check* Active Vitamin D3 25 MCG 1 tab(s) orally once a day; Duration: 90 days Active Calcium Citrate 600-630MG 1 TAB(S) ORALLY 2 TIMES A DAY; Duration: 90 DAYS *Please review and pick correct strength-formulat ion from [employer] options. If intended option is not shown, discontinue and re-order from Quick Search* Active Ibuprofen 800 MG 1 tab(s) orally 3 times a day; Duration: 90 days Active Voltaren Arthritis Pain 1 % as directed applied topically 1-2 times a day Active Vital Signs Temperature 97.7 degrees Fahrenheit 04/25/20 25 Blood pressure systolic 136 mm Hg 04/25/20 25 Blood pressure diastolic 72 mm Hg 025 Heart Rate 80 /min 04/25/2025 Height 5 ft 6 in in 04/25/2025 Weight 120 lbs 04/25/2025 BMI 19.37 kg/m2 04/25/2025 Encounters Encounter Location Date Provider Diagnosis [facility] [place] [address] [facility] [address] [place], [place] [address] 04/25/2025 Kendall Morley Primary hypertension I10 ; Seizure R56.9 ; Acquired hypothyroidism E03.9 ; Primary osteoarthritis involving multiple joints M15.0 ; Migraine-cluster headache syndrome G44.009 ; Onychomycosis B35.1 ; Otalgia, bilateral H92.03 and Routine medical exam Z00.00 Assessments Encounter Date Diagnosis (ICD Code) Assessment Notes Treatment Notes Treatment Clinical Notes Section Notes 04/25/2025 Primary hypertension (ICD-10 - I10) Overall doing very nicely, good blood pressure control. Renal function ordered for next lab draw. No concerns at this point. 04/25/2025 Seizure (ICD-10 - R56.9) Has had no spells recently. On lamotrigine. Not a contraindication to diving. Will check levels. 04/25/2025 Acquired hypothyroidism (ICD-10 - E03.9) Follows endocrinology, clinically euthyroid 04/25/2025 Primary osteoarthritis involving multiple joints (ICD-10 - M15.0) On ibuprofen. -orthopedic surgeon monitors and currently does not wish surgical intervention 04/25/2025 Migraine-cluster headache syndrome (ICD-10 - G44.009) Takes rare Fioricet. No changes in plan 04/25/2025 Onychomycosis (ICD-10 - B35.1) Has a history of tinea in her nails when she goes scuba diving for long periods, will prophylactically treat 04/25/2025 Otalgia, bilateral (ICD-10 - H92.03) 04/25/2025 Routine medical exam (ICD-10 - Z00.00) Up-to-date with screenings including mammogram, DEXA, colonoscopy and vaccines. is healthcare surrogate, 3/3 word recall. Depression screening negative. Lifelong non-smoker Plan Of Treatment Medication Medication Name Sig Start Date Stop Date Notes LaMICtal 25 MG take 3 tablets twice a day orally 2 times a day; Duration: 90 days Fgfcwmlqea-AYFN-Waaqwyws 50-325-40 MG 2 tabs orally twice a day; Duration: 90 days 10/23/2024 prn Losartan Potassium 50 MG 1 tab(s) orally once a day; Duration: 90 days Terbinafine HCl 250 MG 1 tablet Orally O nce a day; Duration: 90 days 04/25/2025 Ciprofloxacin-dexAMETHasone 0.3-0.1 % 4 drops into affected ear Otic Twice a day; Duration: 7 days 04/25/2025 Ibuprofen 800 MG 1 tab(s) orally 3 ti mes a day; Duration: 90 days Treatment Notes Assessment Notes Primary hypertension Overall doing very nicely, good blood pressure control. Renal function ordered for next lab draw. No concerns at this point. Seizure Has had no spells recently. On lamotrigine. Not a contraindication to diving. Will check levels. Acquired hypothyroidism Follows endocrin ology, clinically euthyroid Primary osteoarthritis invol ving multiple joints On ibuprofen. -orthopedic surgeon monitors and currently does not wish surgical intervention Migraine-cluster headache syndrome Takes rare Fioricet. No changes in plan Onychomycosis Has a history of tin ea in her nails when she goes scuba diving for long periods, will prophylactically treat Routine medical exam Up-to-date with screenings including mammogram, DEXA, colonoscopy and vaccines. is healthcare surrogate, 3/3 word recall. Depression screening negative. Lifelong non-smoker Pending Test Test Name Order Date M-Complete Blood Count Auto Diff 025 M-Comprehensive Metabolic Panel 04/25/20 25 M-Lipid Panel 04/25/2025 M-Lamotrigine (Lamictal) 04/25/2025 Next Appt Details Follow Up: prn,6 Months, Lund son: Provider Name:Kendall Morley, 10/29/2025 09:00:00 AM, [address], [address], [place], [address], Progress Notes * Asim ORDONEZOB: [birth year] (65 yo F)Acc No.[id number]:04/25/2025 Progress Notes Patient: Sarai WOOTEN Provider: Jaime Morley MD :[id number] A ge:65 Y S ex:Female Date:04/25/2025 Address:[address] [place] [address] [place], [id number] Subjective: * Chief Complaints: * 1 . 6 month check up. * HPI: g en: Patient is here for follow-up of multiple medical problems and to go over his own Medicare wellness status. Overall feels good. Is planning to go to [facility] on a scuba driving trip with in May and feels like she need clearance for this. Has had no problems this in the past. Follows endocrinology with regular labs for lipid issues and her hypothyroidism. * ROS: F UNCTIONAL STATUS: ADLS I ndependent for all ADL/IADL. * Medical History: M igraine Headaches - use p.r.n. 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 * Surgical History: E ctopic right 04/07/1984, D&C miscarriage 09/27/1992, thyroidectomy right 01/25/1996, tubal ligation 01/25/1996, D&C polyp 06/29/1997, tonsillectomy 01/16/2011, Subscapularus Tendon Repair Left 04/01/2005, Knee scope 09/28/2017, Colonoscopy 12/2023. * Hospitalization/Major Diagno stic Procedure: s vickey 07/2008. * Family History: F ather: , lung cancer. M other: , type II diabetes, breast cancer. P aternal Grand Father: , stroke. P aternal Grand Mother: . M aternal Grand Father: . M aternal Grand Mother: . S iblings: alive. C hildren: alive.?1 brother(s) , 2 sister(s) . 3 son(s) . . * Social History: S moking A re you a:: nonsmoker. R ecreational drug use: no. Exercise: yes. Home smoke detector use: yes. Caffeine: yes, frequency: 2 -3 cups a day. Living Will: No. Alcohol: socially. Sexually active: yes. Travel outside [place]: yes, [place]. Occupation: housewife. * Medications: T aking Voltaren Arthritis Pain 1 % Gel as directed applied topically 1-2 times a day , Taking Acetaminophen ER 650 MG Tablet Extended Release 1 tab orally prn , Taking Centrum THERAPEUTIC MULTIPLE VITAMINS WITH MINERALS TABLET 1 TAB(S) ORALLY ONCE A DAY , Notes to Pharmacist: *Please review and pick correct strength-formulation from [employer] options. If intended option is not shown, [...] *Please review and pick correct strength-formulation from [employer] options. If intended option is not shown, [...] orally 2 times a day , Taking Ovtbqmmawj-LZFU-Kpjnaame 50-325-40 MG Tablet 2 tabs orally twice a day , Notes to Pharmacist: prn, Taking Losartan Potassium 50 MG Tablet 1 tab(s) orally once a day , Discontinued Amoxicillin 875 MG Tablet 1 tab(s) orally 2 times a day , Discontinued Medrol 4 MG Tablet Therapy Pack as directed orally as directed , Medication List reviewed and reconciled with the patient * Allergies: B etadine. Objective: * Vitals: N urse: be, Pain: 2, Temp: 97.7, RR: 16, HR: 80, BP: 136/72, Ht: 5 ft 6 in, Wt: 120, BMI:19.37. * Examination: G eneral Examination: General P leasant and Cooperative, NAD on RA,. Oral cavity: M oist membranes. Chest: n ormal shape and expansion. Heart: R egular Rate and Rhythm, no murmur, rubs or gallops. HEENT: p harynx and tonsils normal, TM's normal. Lungs: L CTAB, No wheezes, crackles or rhonchi, Good air movement,. Abdomen: S oft, NTND, BSNA, No organomegaly or peritoneal signs.. Neurologic Exam: n o focal signs,, normal sensation, strength, tone and reflexes,, Alert and oriented x 3. Skin: w ithout acute rashes. Peripheral pulses: n ormal (2+) bilaterally. Back: n ormal,. Extremities: n ormal ROM,, no clubbing, no edema,, no foot lesions,. neck s upple,, no thyromegaly,, no lymphadenopathy,. Psych N ormal Mood/Affect. diabetic foot exam V isual exam of foot performed: Y es. Neck s upple, no lymphadenopathy. General Appearance: N AD, pleasant. Assessment: * Assessment: 1. P rimary hypertension - I10 (Primary) 2 . S eizure - R56.9 ?3. A cquired hypothyroidism - E03.9 4 . P rimary osteoarthritis involving multiple joints - M15.0 5 . M igraine-cluster headache syndrome - G44.009 6 . O nychomycosis - B35.1 7 . O talgia, bilateral - H92.03 8 . R outine medical exam - Z00.00 Plan: * Treatment: 2. S eizure Refill LaMICtal Tablet, 25 MG, take 3 tablets twice a day, orally, 2 times a day, 90 days, 180, Refills 3. L AB: M-Complete Blood Count Auto Diff L AB: M-Comprehensive Metabolic Panel L AB: M-Lipid Panel L AB: M-Lamotrigine (Lamictal) Notes: Has had no spells recently. On lamotrigine. Not a contraindication to diving. Will check levels. 3. A cquired hypothyroidism L AB: M-Complete Blood Count Auto Diff L AB: M-Comprehensive Metabolic Panel L AB: M-Lipid Panel L AB: M-Lamotrigine (Lamictal) Notes: Follows endocrinology, clinically euthyroid 4. P rimary osteoarthritis involving multiple joints Refill Ibuprofen Tablet, 800 MG, 1 tab(s), orally, 3 times a day, 90 days, 270, Refills 3. ? L AB: M-Complete Blood Count Auto Diff L AB: M-Comprehensive Metabolic Panel L AB: M-Lipid Panel L AB: M-Lamotrigine (Lamictal) Notes: On ibuprofen. -orthopedic surgeon monitors and currently does not wish surgical intervention 5. M igraine-cluster headache syndrome Refill Krnifwknet-MJGP-Ccseikkl Tablet, 50-325-40 MG, 2 tabs, orally, twice a day As needed, 90 days, 180, Refills 1, Notes to Pharmacist: prn. Notes: Takes rare Fioricet. No changes in plan 6. O nychomycosis Start Terbinafine HCl Tablet, 250 MG, 1 tablet, Orally, Once a day, 90 days, 90 Tablet, Refills 0.? Notes: Has a history of tinea in her nails when she goes scuba diving for long periods, will prophylactically treat 7. O talgia, bilateral Start Ciprofloxacin-dexAMETHasone Suspension, 0.3-0.1 %, 4 drops into affected ear, Otic, Twice a day, 7 days, 1, Refills 1. 8. R outine medical exam Notes: Up-to-date with screenings including mammogram, DEXA, colonoscopy and vaccines. is healthcare surrogate, 3/3 word recall. Depression screening negative. Lifelong non-smoker * Procedure Codes: G 0439 ANNUAL WELLNESS VST; PPS SUBSQT VST, 1170F FUNCTIONAL STATUS ASSESSMENT, G8399 PT W/DXA DOCUMENT OR ORDER, 1123F ADVANCED DIRECTIVE - HAS A LIVING WILL, G9899 Screening diagnostic,film,digital results documented and reviewed, 3017F COLORECTAL CA SCREEN DOC REV, G8420 BMI documented as normal, no follow up required., G8510 NEGATIVE SCREENING F/U NOT REQUIRED, G9903 Pt scrn tbco id as non user, 1036F TOBACCO NON-USER, G8797 Most recent systolic blood pressure < 140mmhg, G8754 Most recent diastolic blood pressure < 90mmhg, G9744 PATIENT NOT ELIG D/T ACTIVE DX HTN * Follow Up: p rn,6 Months * * Sign off status: Completed true * Provider: Jaime Morley MD Date: 04/25/2025 Generated for Paulettei negrita/John/eTransmitting on: 05/25/2025 10:03 AM EDT History and Physical Notes * Examination Category Sub-Category Detail Notes Category Not es General Examination HEENT: pharynx and tonsils normal, TM's normal Neck supple, no lymphaden opathy Heart: Regular Rate and Rhy thm, no murmur, rubs or gallops Lungs: LCTAB, No wheezes, c rackles or rhonchi, Good air movement, Abdomen: Soft, NTND, BSNA, No organomegaly or peritoneal signs. Extremities: normal ROM,, no club yony, no edema,, no foot lesions, General Appearance: NAD, pleasant Skin: without acute rashes Neurologic Exam: no focal signs,, nor mal sensation, strength, tone and reflexes,, Alert and oriented x 3 Oral cavity: Moist membranes Peripheral pulses: normal (2+) bilatera lly Back: normal, Chest: normal shape and exp ansion neck supple,, no thyromeg mercy,, no lymphadenopathy, General Pleasant and Coopera tive, NAD on RA, Psych Normal Mood/Affect diabetic foot exam Visual exam of foot performed :: Yes
--- OUTSIDE RECORDS SUMMARY | 2025-05-23 10:00 | XMS_ITS | Encounter Summary ---
Author Organization [facility] Address [address] [id number] Care Team Providers Care Intel Analyst Name Role Phone Kendall Morley MD Primary Care Provider + [phone] Reason for Visit * Reason Comments Routine Oral Cleaning Encounter Details Date Type Department Care Team ([facility] Contact Info) Description 05/23/2025 10:00 AM EDT Office Visit [facility] [address] [place] [id number] Ginna Michelle Dental calculus (Primary Dx) Social History Tobacco Use Types Packs/Day Years Used Date Smoking Tobacco: Never Comments Unknown Sex and Gender Information Value Date Recorded Sex Assigned at Female 05/27/2023 10:19 AM EDT Legal Sex Female 6:11 PM EDT Gender Identity Not on file Sexual Orientation Not on file documented as of this encounter Last Filed Vital Signs Vital Sign Reading Time Taken Comments Blood Pressure 136/85 05/23/2025 10:02 AM EDT Pulse 66 05/23/2025 10:02 AM EDT Temperature - - Respiratory Rate - - Oxygen Saturation - - Inhaled Oxygen Concentration - - Weight - - Height - - Body Mass Index - - documented in this encounter Plan of Treatment Upcoming Encounters Date Type Department Care Team ([facility] Contact Info) Description 11/27/2025 11:00 AM EST Office Visit [facility] [address] [place] [id number] Ginna Michelle Scheduled Orders Name Type Priority Associated Diagnoses Orde r Schedule Full Full PROPHYLAXIS - ADULT Dental Routine [address] arting 05/23/2025 PERIODIC ORAL EVALUATION - ESTABLISHED PATIENT Dental Routine 1 Occurren issa starting 05/23/2025 documented as of this encounter Procedures Procedure Name Priority Date/Time Associated Diagnosis Comments PROPHYLAXIS - ADULT Routine 05/23/2025 1 0:00 AM EDT Dental calculus PERIODIC ORAL EVALUATION - ESTABLISHED PATIENT Routine 05/23/2025 10:00 AM EDT Dental calculus documented in this encounter Visit Diagnoses Diagnosis Dental calculus- Primary Accretions on teeth documented in this encounter Additional Health Concerns Assessment Noted Time A fall risk assessment has been complete d for the patient 05/27/2023 10:34 AM EDT A Body Mass Index follow-up plan has been documented for the patient 05/23/2025 12:01 PM EDT documented as of this encounter Care Teams Intel Analyst Relationship Specialty Start Date End Date Kendall Morley MD [address] [place] [address] PCP - General 03/21/21 documented as of this encounter
--- OUTSIDE RECORDS SUMMARY | 2025-05-25 10:00 | XMS_ITS | Continuity of Care Document ---
Author Name [facility] Organization [facility] Care Team Providers Care Imaging Specialist Name Role Phone [facility] Unavailable Unavailable Problems Combined list of problems from Department of Defense and Veterans Affairs facilities. It does not include entries that were removed or entered in error. Problem Status Onset Date Problem Type Date of Resolution Comments Source CLASSIC MIGRAINE (WITH AURA) Active Condition DoD SEIZURE DISORDER Active Condition DoD fainting (syncope) Active Condition DoD decrease in consciousness [Sx] Active Condition DoD visit for: administrative purpose Inactive Condition DoD visit for: screening malignant neoplasm colon Active Condition see dictated note DoD PRESBYOPIA Active Condition ok to use OTC readers +1.75 DoD HYPERTHYROIDISM Inactive Condition DoD HYPOTHYROIDISM Active Condition stii gettingoo much thyroid P: cut 50 mcg thyroid in half and recheck thyroid panel in 6 weeks. Pt agrees DoD OSTEOPOROSIS Active Condition Calcium 1500 daily and Vit D 800 units a day DoD visit for: screening exam malignant neoplasm breast Active Condition DoD ROUTINE GYNECOLOGICAL EXAM WITH CERVICAL PAP SMEAR Inactive Condition DoD visit for: laboratory Active Condition DoD upper back pain (between shoulder blades) Active Condition DoD MUSCLE SPASM Active Condition DoD CERVICALGIA Active Condition DoD Other Physical Therapy Inactive Condition DoD OSTEOPENIA Active Condition Pt called me re: results of Dexa-scan which showed osteopenia. Pt had me pull up result of studyof scan which showed osteopenia. I gave pt BONIVA; she has taken 1 pill. Pt then wanted to debate with me the actual numbers which I did not want to do. My advice was to take the BONIVA Calcium 1000 mg a day and Vit. D 800 units a day and recheck Dexa-scan in 1 year DoD BENIGN SKIN NEOPLASM Active Condition Risks, benefits, alternatives reviewed - patient elects to proceed, informed consent signed, witnessed & on chart. Infiltrated with local - lidocaine with epi. Betadine swab x 3. 6mm punch. Specimen to path. Closed with 4-0 nylon simple interrupted x 2. Infection signs and wound care reviewed. RTC suture removal in 2 weeks. Patient agrees. No complications. DoD Macules And Papules Active Condition Benign appearing nevus on mid-back. Will schedule removal at patient request. Likely 6mm punch. DoD MIGRAINE HEADACHE Active Condition DoD visit for: issue repeat prescription for medication Active Condition DoD HYPOTHYROIDISM Active Condition DoD joint pain, localized in the shoulder Active Condition DoD Laboratory Studies Active Condition DoD Medications Combined list of outpatient medications from Department of Defense and Veterans Affairs facilities.Medications provided include 1) outpatient medications from the last 15 months, and 2) patient-reported medications. Medication Details Route Status Patient Instructions Prescription Expires Prescription Number Last Dispense Date Ordering Provider Order Date Order Qty Source BUTALBITAL- ACETAMINOPH EN-CAFFE (butalbital /acetaminop hen/caffein e), 50-325-40, TABLET, ORAL, PROFICIENT RX L, 100 ea. BOTTLE Cancele d [id number] : 2023 0 Pharmac y Data Transac tion Service Facilit y BUTALBITAL- ACETAMINOPH EN-CAFFE (butalbital /acetaminop hen/caffein e), 50-325-40, TABLET, ORAL, PROFICIENT RX L, 100 ea. BOTTLE Active [id number] 2023 360 Pharmac y Data Transac tion Service Facilit y EPINEPHRINE (epinephrin e), 0.3MG/0.3, AUTO INJCT, INJECTION, TEVA [place], 2 ea. SYRINGE Cancele d [id number] : 2023 0 Pharmac y Data Transac tion Service Facilit y METRONIDAZO LE (METRONIDAZ OLE), 500MG, TABLET, ORAL, PLIVA, INC, 500 ea. BOTTLE Active [id number] 2023 21 Pharmac y Data Transac tion Service Facilit y Allergies, Adverse Reactions, Alerts Combined list of allergies from Department of Defense and Veterans Affairs facilities. It does not include entries that were removed or entered in error. Substance Category Reaction Severity Reaction type Status Date Reported Comments Source BETADINE (POVIDONE-IO DINE) Drug allergy (disorder) Unknown active 03/22/2006 [facility] BETADINE (SOAP/POVIDO NE-IODINE) Drug allergy (disorder) Unknown active 03/30/2005 EMILY Ochoa Immunizations Combined list of available immunizations from the Department of Defense and Veterans Affairs facilities. Immunization Series Date Given Administered By Site Reaction Lot Number CVX Code Drug Grit Blaster Status Comments Source zoster recombinant 2021 ZACKARY, () Not Given zoster recombina nt DoD zoster recombinant 2020 NATE MIRELES, () Not Given zoster recombina nt DoD influenza, injectable, quadrivalent, preservative free 2019 LAUREN, () Not Given influenza , injectabl e, quadrival ent, preservat aris free DoD meningococcal MCV4P 2016 CHRISTIANNEAFAGIINES () Not Given meningoco ccal MCV4P DoD meningococcal MCV4P 2016 KHAFAGIAYJAYJAY () Not Given meningoco ccal MCV4P DoD meningococcal MCV4P 2016 KHAFAGIAYJAYJAY () Not Given meningoco ccal MCV4P DoD influenza, injectable, quadrivalent, preservative free 2016 CHRISTIANNEAFAGIAYJAYJAY () Not Given influenza , injectabl e, quadrival ent, preservat aris free DoD influenza virus vaccine, split virus (incl. purified surface antigen)-reti red CODE 1 2006 Unknown, Provider [id number] [employer] ([facility]) complet ed influenza virus vaccine, split virus (incl. purified surface antigen)- retired CODE DoD influenza virus vaccine, whole virus 1 2005 Unknown, Provider [id number] Sanofi Pasteur ([facility]) complet ed influenza virus vaccine, whole virus DoD influenza virus vaccine, whole virus 1 2004 Unknown, Provider [id number] 16 Sanofi Pasteur ([facility]) complet ed influenza virus vaccine, whole virus DoD influenza virus vaccine, whole virus 1 2002 Unknown, Provider [id number] 16 Sanofi Pasteur ([facility]) complet ed influenza virus vaccine, whole virus DoD influenza virus vaccine, whole virus 1 2001 Unknown, Provider [id number] 16 Sanofi Pasteur ([facility]) complet ed influenza virus vaccine, whole virus DoD Encounters Combined list of: 1) Encounters from Department of Veterans Affairs facilities going backup to the last 18 months, not all VA inpatient encounters are included; 2) Encounters from the Department of Defense facilities going backup to 280 months. Location Location Details Encounter Type Encounter Number Reason For Visit Attending Provider ADM Date DC Date Status Disposition Source Critical access hospital [facility] TELE CONSULT [id number] Green-f/ u appt HÉCTOR MUSA Enzo Melendez 03/22 [facility]) OUTPATIENT [id number] diandra crystal ruvalcabai on TEA STRINGER 04/12 Released w/o Limitations [facility] OUTPATIENT [id number] f up on meds for thyroid VIKI GREEN 04/12 Released w/o Limitations [facility] TELE CONSULT [id number] pcm kob. LONNIE OSEGUERA 06/24 [facility] OUTPATIENT [id number] f/u for migrain e headach es and mole. ZAK LANDA 08/17 Released w/o Limitations [facility] OUTPATIENT [id number] f/up on mole on back ZAK LANDA 09/13 Released w/o Limitations [facility]) OUTPATIENT [id number] CONSTANTINO GREEN 12/09 Released w/o Limitations [facility]) OUTPATIENT [id number] FREDDY MCGILL 12/16 Released w/o Limitations [facility] ) [facility]) OUTPATIENT [id number] Pt gets ELVISO BOBBY RODRIGUEZ 12/20 Released w/o Limitations [facility] [place] [place] OUTPATIENT [id number] DANITA WANG 12/24 Released w/o Limitations [facility] [place] [place] [place] [place]) OUTPATIENT [id number] pt gets nakita GREEN TY 12/28 Released w/o Limitations [facility] [place] [place]) OUTPATIENT [id number] IF and SOPHIA SU 01/04 Released w/o Limitations [facility] [place] [place]) OUTPATIENT [id number] LUCAS GREGORY 01/07 Released w/o Limitations [facility] [place] [place]) OUTPATIENT [id number] SOPIHA DUNCAN 01/10 Released w/o Limitations [facility] [place] [place] OUTPATIENT [id number] DANITA WANG 01/18 Released w/o Limitations [facility] [place] [place]) OUTPATIENT [id number] SOPHIA DUNCAN 01/21 Released w/o Limitations [facility] [place] [place] OUTPATIENT [id number] DANITA WANG 01/25 Released w/o Limitations [facility] [place] [place]) OUTPATIENT [id number] CHERYL AMOS 01/28 Released w/o Limitations [facility] [place] [place]) OUTPATIENT [id number] BOBBY RODRIGUEZ 02/08 Released w/o Limitations [facility] ) [facility]) OUTPATIENT [id number] SOPHIA DUNCAN 02/11 Released w/o Limitations [facility] TELE CONSULT [id number] pcm luis / lab work VIKI BOYLE 03/03 [facility]) OUTPATIENT [id number] annual pap MARY VILLEGAS 03/28 Released w/o Limitations EMILY Rodgers([facility]) [facility] OUTPATIENT [id number] f/u on thyroid /bone density / poss back x rays VIKI BOYLE 03/28 Released w/o Limitations [facility] TELE CONSULT [id number] Dexa Scan VIKI BOYLE 04/29 [facility]) [facility] TELE CONSULT [id number] VIKI BOYLE 05/12 [facility] OUTPATIENT [id number] per pt thyroid check, pt is concern ed with thyroid level TEA WARD 06/24 Released w/o Limitations [facility] TELE CONSULT [id number] PCM Basilia/l ab order JESUSITA CIFUENTES 07/12 [facility]) [facility]) OUTPATIENT [id number] walk in JESUSITA CIFUENTES 07/19 Released w/o Limitations [facility] [place] [place] TELE CONSULT [id number] lab results CARA GALLEGOSA 08/09 [facility] [place] [place] [place] [place] TELE CONSULT [id number] Basilia/ DENISE BRYANT 08/16 [facility] ) OUTPATIENT [id number] YEARLY EYE EXAM MONET SARAHHENRY Montiel 09/16 Released w/o Limitations [facility] [place] [place] [place] TELE CONSULT [id number] needs referra l to endocri nologis t for yearly check ANNA MARIE GALLEGOS 11/22 [facility] [place] [place] [place] OUTPATIENT [id number] cls screeni ng MONICA INGRAM 02/12 Released w/o Limitations [facility] [place] [place] OUTPATIENT [id number] cls MONICA INGRAM 02/13 Released w/o Limitations [facility] [place] TELE CONSULT [id number] PCM Basilia/ZAK Dean 03/21 [facility] [place] [facility]) OUTPATIENT [id number] ROUTINE PAP ELIO IGLESIAS 04/05 Released w/o Limitations [facility] [place](Jairo rology) OUTPATIENT [id number] Pas entered the order ZAID STARKEY 08/28 Released w/o Limitations [facility](N eurolog y) [facility](Jairo rology) TELE CONSULT [id number] can you do est over phone after eeg. can you fax visit note (see note) ZAID STARKEY 08/29 [facility](N eurolog y) [facility](Jairo rology) OUTPATIENT [id number] Pas entered the order ZAID STARKEY 10/08 Released w/o Limitations [facility](N eurolog y) [facility](Jairo rology) OUTPATIENT [id number] ZAID STARKEY 12/04 Released w/o Limitations [facility](N eurolog y) [facility](Jairo rology) OUTPATIENT [id number] f/u seizure est with ROSY Ricks 09/30 Released w/o Limitations [facility](N eurolog y) [address] [place] [address](Jairo rology) TELE CONSULT [id number] MRI Results ROSY ARBOLEDA 10/23 [facility](N eurolog y) [address] [place] [address](Jairo rology) TELE CONSULT [id number] mri 10 days ago plz call cell [phone] ROSY ARBOLEDA 10/28 [facility](N eurolog y) [address] [place] [address](Jairo roly) OUTPATIENT [id number] f/u ROSY ARBOLEDA 05/21 Released w/o Limitations [address] [place] [address](N eurolog y) Procedures Combined list of: 1) Procedures from Department of Veterans Affairs facilities going back up to thelast 18 months, not all VA non-surgical procedures are included; 2) All procedures from the Department of Defense facilities. Procedure Procedure Type Code Date Perfomer Comments [facility] e ELECTROENCEPHALOGRAM (EEG); INCLUDING RECORDING AWAKE AND DROWSY 12/04/2008 DoD ELECTROENCEPHALOGRAM (EEG); INCLUDING RECORDING AWAKE AND DROWSY 10/08/2008 [facility] UNILATERAL THYROID LOBECTOMY 01/26/1996 [facility] LYSIS OF PERITONEAL ADHESIONS 01/26/1996 [facility] OTHER BILATERAL ENDOSCOPIC DESTRUCTION OR OCCLUSION OF FALLOPIAN TUBES 01/26/1996 [facility] EPISIOTOMY 09/22/1993 [facility] DILATION AND CURETTAGE FOLLOWING DELIVERY OR 09/27/1992 [facility] CYTOPATHOLOGY, SMEARS, CERVICAL OR VAGINAL, UP TO THREE SMEARS; SCREENING BY CONCIERGE UNDER PHYSICIAN SUPERVISION 04/23/2000 DoD INJECTION, FENTANYL CITRATE, 0.1 MG 01/17/2004 DoD INJECTION, BUPIVICAINE HYDROCHLORIDE, 30 ML 09/03/2003 DoD INJECTION, FENTANYL CITRATE, 0.1 MG 03/09/2003 DoD PHYSICAL THERAPY RE-EVALUATION 09/26/2002 DoD RANGE OF MOTION MEASUREMENTS AND REPORT (SEPARATE PROCEDURE); EACH EXTREMITY (EXCLUDING HAND) OR EACH TRUNK SECTION (SPINE) 08/29/2002 DoD RANGE OF MOTION MEASUREMENTS AND REPORT (SEPARATE PROCEDURE); EACH EXTREMITY (EXCLUDING HAND) OR EACH TRUNK SECTION (SPINE) 08/01/2002 DoD RANGE OF MOTION MEASUREMENTS AND REPORT (SEPARATE PROCEDURE); EACH EXTREMITY (EXCLUDING HAND) OR EACH TRUNK SECTION (SPINE) 07/06/2002 DoD PHYSICAL THERAPY RE-EVALUATION 06/07/2002 DoD RANGE OF MOTION MEASUREMENTS AND REPORT (SEPARATE PROCEDURE); EACH EXTREMITY (EXCLUDING HAND) OR EACH TRUNK SECTION (SPINE) 05/16/2002 [facility] SCREENING PAPANICOLAOU SMEAR ; OBTAINING, PREPARING AND CONVEYANCE OF CERVICAL OR VAGINAL SMEAR TO LABORATORY 05/08/2002 [facility] REMOVAL OF SKIN TAGS, MULTIPLE FIBROCUTANEOUS TAGS, ANY AREA; UP TO AND INCLUDING 15 LESIONS 09/02/2001 [facility] SCREENING PAPANICOLAOU SMEAR ; OBTAINING, PREPARING AND CONVEYANCE OF CERVICAL OR VAGINAL SMEAR TO LABORATORY 04/05/2008 [facility] COLORECTAL CANCER SCREENING; COLONOSCOPY ON INDIVIDUAL NOT MEETING CRITERIA FOR HIGH RISK 02/14/2008 [facility] OPHTHALMOLOGICAL SERVICES: MEDICAL EXAMINATION AND EVALUATION WITH INITIATION OF DIAGNOSTIC AND TREATMENT PROGRAM; COMPREHENSIVE, NEW PATIENT, 1 OR MORE VISITS 09/16/2007 [facility] SCREENING PAPANICOLAOU SMEAR ; OBTAINING, PREPARING AND CONVEYANCE OF CERVICAL OR VAGINAL SMEAR TO LABORATORY 03/28/2007 [facility] APPLICATION OF A MODALITY TO 1 OR MORE AREAS; HOT OR COLD PACKS 02/11/2007 DoD APPLICATION OF A MODALITY TO 1 OR MORE AREAS; HOT OR COLD PACKS 02/08/2007 DoD APPLICATION OF A MODALITY TO 1 OR MORE AREAS; HOT OR COLD PACKS 01/28/2007 DoD APPLICATION OF A MODALITY TO 1 OR MORE AREAS; HOT OR COLD PACKS 01/25/2007 DoD APPLICATION OF A MODALITY TO 1 OR MORE AREAS; ULTRASOUND, EACH 15 MINUTES 01/21/2007 DoD APPLICATION OF A MODALITY TO 1 OR MORE AREAS; HOT OR COLD PACKS 01/18/2007 DoD APPLICATION OF A MODALITY TO 1 OR MORE AREAS; ELECTRICAL STIMULATION (MANUAL), EACH 15 MINUTES 01/10/2007 DoD APPLICATION OF A MODALITY TO 1 OR MORE AREAS; ULTRASOUND, EACH 15 MINUTES 01/07/2007 DoD APPLICATION OF A MODALITY TO 1 OR MORE AREAS; HOT OR COLD PACKS 01/04/2007 DoD APPLICATION OF A MODALITY TO 1 OR MORE AREAS; HOT OR COLD PACKS 12/28/2006 DoD APPLICATION OF A MODALITY TO 1 OR MORE AREAS; HOT OR COLD PACKS 12/24/2006 DoD APPLICATION OF A MODALITY TO 1 OR MORE AREAS; HOT OR COLD PACKS 12/20/2006 DoD APPLICATION OF A MODALITY TO 1 OR MORE AREAS; ULTRASOUND, EACH 15 MINUTES 12/16/2006 DoD APPLICATION OF A MODALITY TO 1 OR MORE AREAS; HOT OR COLD PACKS 12/09/2006 DoD BIOPSY OF SKIN, SUBCUTANEOUS TISSUE AND/OR MUCOUS MEMBRANE (INCLUDING SIMPLE CLOSURE), UNLESS OTHERWISE LISTED; SINGLE LESION 09/13/2006 [facility] ARTHROCENTESIS, ASPIRATION AND/OR INJECTION, MAJOR JOINT OR BURSA (EG, SHOULDER, HIP, KNEE, SUBACROMIAL BURSA); WITHOUT ULTRASOUND GUIDANCE 04/12/2006 DoD POSTOPERATIVE FOLLOW-UP VISIT, NORMALLY INCLUDED IN THE SURGICAL PACKAGE, INDICATE THAT EVALUATION & MANAGEMENT SERVICE WAS PERFORMED DURING A POSTOPERATIVE PERIOD REASON RELATED ORIGINAL PROCEDURE 07/20/2005 [facility] THERAPEUTIC PROCEDURE, 1 OR MORE AREAS, EACH 15 MINUTES; THERAPEUTIC EXERCISES TO DEVELOP STRENGTH AND ENDURANCE, RANGE OF MOTION AND FLEXIBILITY 07/02/2005 [facility] THERAPEUTIC PROCEDURE, 1 OR MORE AREAS, EACH 15 MINUTES; THERAPEUTIC EXERCISES TO DEVELOP STRENGTH AND ENDURANCE, RANGE OF MOTION AND FLEXIBILITY 06/30/2005 [facility] THERAPEUTIC PROCEDURE, 1 OR MORE AREAS, EACH 15 MINUTES; THERAPEUTIC EXERCISES TO DEVELOP STRENGTH AND ENDURANCE, RANGE OF MOTION AND FLEXIBILITY 06/25/2005 [facility] THERAPEUTIC PROCEDURE, 1 OR MORE AREAS, EACH 15 MINUTES; THERAPEUTIC EXERCISES TO DEVELOP STRENGTH AND ENDURANCE, RANGE OF MOTION AND FLEXIBILITY 06/23/2005 [facility] THERAPEUTIC PROCEDURE, 1 OR MORE AREAS, EACH 15 MINUTES; THERAPEUTIC EXERCISES TO DEVELOP STRENGTH AND ENDURANCE, RANGE OF MOTION AND FLEXIBILITY 06/16/2005 [facility] PHYSICAL THERAPY RE-EVALUATION 06/10/2005 [facility] POSTOPERATIVE FOLLOW-UP VISIT, NORMALLY INCLUDED IN THE SURGICAL PACKAGE, INDICATE THAT EVALUATION & MANAGEMENT SERVICE WAS PERFORMED DURING A POSTOPERATIVE PERIOD REASON RELATED ORIGINAL PROCEDURE 06/08/2005 [facility] THERAPEUTIC PROCEDURE, 1 OR MORE AREAS, EACH 15 MINUTES; THERAPEUTIC EXERCISES TO DEVELOP STRENGTH AND ENDURANCE, RANGE OF MOTION AND FLEXIBILITY 06/05/2005 DoD THERAPEUTIC PROCEDURE, 1 OR MORE AREAS, EACH 15 MINUTES; THERAPEUTIC EXERCISES TO DEVELOP STRENGTH AND ENDURANCE, RANGE OF MOTION AND FLEXIBILITY 06/03/2005 DoD THERAPEUTIC PROCEDURE, 1 OR MORE AREAS, EACH 15 MINUTES; THERAPEUTIC EXERCISES TO DEVELOP STRENGTH AND ENDURANCE, RANGE OF MOTION AND FLEXIBILITY 06/01/2005 DoD THERAPEUTIC PROCEDURE, 1 OR MORE AREAS, EACH 15 MINUTES; THERAPEUTIC EXERCISES TO DEVELOP STRENGTH AND ENDURANCE, RANGE OF MOTION AND FLEXIBILITY 05/22/2005 DoD THERAPEUTIC PROCEDURE, 1 OR MORE AREAS, EACH 15 MINUTES; THERAPEUTIC EXERCISES TO DEVELOP STRENGTH AND ENDURANCE, RANGE OF MOTION AND FLEXIBILITY 05/20/2005 [facility] PHYSICAL THERAPY RE-EVALUATION 05/15/2005 DoD POSTOPERATIVE FOLLOW-UP VISIT, NORMALLY INCLUDED IN THE SURGICAL PACKAGE, INDICATE THAT EVALUATION & MANAGEMENT SERVICE WAS PERFORMED DURING A POSTOPERATIVE PERIOD REASON RELATED ORIGINAL PROCEDURE 05/12/2005 DoD POSTOPERATIVE FOLLOW-UP VISIT, NORMALLY INCLUDED IN THE SURGICAL PACKAGE, INDICATE THAT EVALUATION & MANAGEMENT SERVICE WAS PERFORMED DURING A POSTOPERATIVE PERIOD REASON RELATED ORIGINAL PROCEDURE 04/28/2005 DoD EXERCISE EQUIPMENT 04/21/2005 Do D POSTOPERATIVE FOLLOW-UP VISIT, NORMALLY INCLUDED IN THE SURGICAL PACKAGE, INDICATE THAT EVALUATION & MANAGEMENT SERVICE WAS PERFORMED DURING A POSTOPERATIVE PERIOD REASON RELATED ORIGINAL PROCEDURE 04/15/2005 DoD PHYSICAL THERAPY EVALUATION 04/07/2005 [facility] UNLISTED SPECIAL SERVICE, PROCEDURE OR REPORT 04/01/2005 [facility] ARTHROCENTESIS, ASPIRATION AND/OR INJECTION, MAJOR JOINT OR BURSA (EG, SHOULDER, HIP, KNEE, SUBACROMIAL BURSA); WITHOUT ULTRASOUND GUIDANCE 01/19/2005 [facility] BLOOD,OCCULT,BY PEROXIDASE ACTIV (EG,GUAIAC),QUAL;FECES,CONSEC UTIVE COLLECTED SPECIMENS W SING DETERMIN,FOR COLORECTAL NEOPLAS SCREEN (IE,PAT PROVIDE 3 CARDS/SING TRIPLE CARD FOR CONSECUTIVE COLLECT) 12/11/2004 DoD APPLICATION OF SHORT ARM SPLINT (FOREARM TO HAND); STATIC 07/31/2004 DoD APPLICATION OF FINGER SPLINT ; STATIC 07/17/2004 DoD Social History Combined list of available smoking, tobacco, and other social history from Department of Defense and Veterans Affairs facilities. Social History Type Response Date Comment Sourc e This section is an empty social history section. DoD
--- OUTSIDE RECORDS SUMMARY | 2025-05-25 10:02 | XMS_ITS | Encounter Summary ---
Author Organization [place] [address] Care Team Providers Care Rubber Flap Cutter Name Role Phone Unavailable Primary Care Provider Unavailabl e Reason for Visit * Reason Comments Medication Refill Encounter Details Date Type Department Care Team (Late st Contact Info) Description 04/02/2025 Refill [facility] Physicians [facility] [address] [facility] [address] [place], [place] [phone] Billy Sarmiento MD [address] [place] [address] Medication Refill Social History Tobacco Use Types Packs/Day Years Used Date Smoking Tobacco: Never Smokeless Tobacco: Never Alcohol Use Standard Drinks/Week Comments Yes 0 (1 standard drink = 0.6 oz pure alcohol) About 2 half glasses of wine a month Sexually Active Control Partners Comments Yes Post-menopausal Male Comments Unknown Sex and Gender Information Value Date Recorded Sex Assigned at Not on file Legal Sex Female 2:15 PM EST Gender Identity Not on file Sexual Orientation Not on file documented as of this encounter Ordered Prescriptions Prescription Sig Dispense Quantity Refills Last Filled Start Date End Date LEVOthyroxine (SYNTHROID) 100 mcg Oral TabletIndications:H ypothyroidism (acquired) TAKE 1 TABLET DAILY 100 Tablet 1 04/04/2025 documented in this encounter Miscellaneous Notes * Telephone Encounter - Nichelle Jo CPhT - 04/04/2025 2:23 PM EDT SYNTHROID Future Visit: 08/20/25 Last Assessed Visit: 08/16/24 Follow-Up Date: 08/16/25 All protocols passed. Refills approved and sent to requesting pharmacy. Routed to [facility] if applicable. documented in this encounter Plan of Treatment Upcoming Encounters Date Type Department Care Team (Late st Contact Info) Description 08/20/2025 11:00 AM EDT Office Visit [facility] [address] [facility] [address] [place] [phone] Billy Sarmiento MD [address] [place] [address] documented as of this encounter Visit Diagnoses Diagnosis Hypothyroidism (acquired) Unspecified hypothyroidism documented in this encounter Discontinued Medications Medication Sig Discontinue Reason Start Date End Da te LEVOthyroxine (SYNTHROID) 100 mcg Oral TabletIndications:Hypoth yroidism (acquired) TAKE 1 TABLET DAILY 09/25/2024 04/04/20 documented as of this encounter Additional Health Concerns Assessment Noted Time A fall risk assessment has been complete d for the patient 08/12/2023 11:01 AM EDT documented as of this encounter
--- OUTSIDE RECORDS SUMMARY | 2025-05-25 10:02 | XMS_ITS | Clinical Summary ---
Author Organization [facility] Address [address] [place] [address] Phone Care Team Providers Care Campus Manager Name Role Phone Unavailable Primary Care Provider Unavailabl e Allergies Active Allergy Reactions Criticality Noted Date Comments Povidone-Iodine Other (See Comments) Low 03/30/2005 Skin irritation Soap Other (See Comments) 11/11/2017 Medications lamoTRIgine (LAMICTAL) 25 mg Oral Tablet Take 3 Tabs by mouth 2 times daily. 01/03/2021 Active ergocalciferol, vitamin D2, (VITAMIN D2 ORAL) Take by mouth. 9110-1632 mg daily Active calcium carbonate 650 mg calcium (1,625 mg) Oral Tablet Take 1 Tablet by mouth daily. Active cetirizine HCl (ZYRTEC ORAL) Take by mouth. PRN Active olopatadine (PATADAY) 0.2 % Opht Drops 1 Drop daily. Active famotidine (PEPCID ORAL) Take 10 mg by mouth. 1-3 times daily PRN Active ibuprofen (ADVIL;MOTRIN) 800 mg Oral Tablet Take 800 mg by mouth daily. 1-3 times daily Active butalb/acetamin ophen/caffeine (FIORICET ORAL) Take by mouth. Two tablets PRN Active losartan (COZAAR) 50 mg Oral Tablet Take 50 mg by mouth daily. 07/28/2023 Active CALCIUM CITRATE ORAL Take by mouth. Active fluticasone propionate (FLONASE NASL) 1 [place] by Nasal route as needed. Active LEVOthyroxine (SYNTHROID) 100 mcg Oral TabletIndicatio ns:Hypothyroidi sm (acquired) TAKE 1 TABLET DAILY 100 Tablet 1 04/04/2025 Active Active Problems Problem Noted Date Diagnosed Date Age-related osteoporosis wit hout current pathological fracture 07/30/2021 Hypothyroidism (acquired) 01/22/2021 Vitamin D deficiency 01/22/2021 Osteopenia after menopause 01/22/2021 Encounters Date Type Department Care Team Description 04/02/[address] [facility] [address] [address] Billy Sarmiento MD Medication Refill from Last 3 Months Surgical History Surgery Date Site/Laterality Comments THYROID SURGERY Medical History Medical History Date Comments Hypothyroidism Hyperthyroidism Seizure (HCC) Acute headache Osteopenia Family History Medical History Relation Name Comments Coronary Art Dis Father Armando High Blood Pressure Father Armando Anemia Mother Lorie Coronary Art Dis Mother Lorie Dementia Mother Lorie Elevated Lipids Mother Lorie High Blood Pressure Mother Lorie Osteoporosis Mother Lorie Thyroid Disease Mother Lorie Relation Name Status Comments Father Armando Mother Lorie Social History Tobacco Use Types Packs/Day Years Used Date Smoking Tobacco: Never Smokeless Tobacco: Never Tobacco Cessation:Counseling Given: Not Answered Alcohol Use Standard Drinks/Week Comments Yes 0 (1 standard drink = 0.6 oz pure alcohol) About 2 half glasses of wine a month Sexually Active Control Partners Comments Yes Post-menopausal Male Comments Unknown Sex and Gender Information Value Date Recorded Sex Assigned at Not on file Legal Sex Female 2:15 PM EST Gender Identity Not on file Sexual Orientation Not on file Obstetrics History Last Filed Vital Signs Vital Sign Reading Time Taken Comments Blood Pressure 138/82 08/16/2024 11:11 AM EDT Pulse 63 08/16/2024 11:11 AM EDT Temperature - - Respiratory Rate 16 08/16/2024 11:11 AM EDT Oxygen Saturation - - Inhaled Oxygen Concentration - - Weight 55.4 kg (122 lb 1.6 oz) 08/16/2024 11:11 AM EDT Height 167.6 cm (5' 6 ) 08/16/2024 11:11 AM EDT Body Mass Index 19.71 08/16/2024 11:11 AM EDT Plan of Treatment Upcoming Encounters Date Type Department Care Team (Late st Contact Info) Description 08/20/2025 11:00 AM EDT Office Visit [facility] [place] [address] [facility] [address] [place] [phone] Billy Sarmiento MD [address] [place] [address] Health Maintenance Due Date Last Done Comments Wellness Exam Medicare 1963 Hepatitis C Screening 1976 Breast Cancer Screening 1998 Cologuard 2003 Colon Cancer Screening 2003 Colonoscopy 2003 FIT 2003 Sigmoidoscopy 2003 Virtual Colonography 2003 Bone Density Screening 2023 COVID-19 Vaccine ( season) 2024 08/14/2023, 09/30/2022, 07/30/2021, Additional history exists Influenza Vaccine (#1) 2025 , 08/21/2022, 09/30/2021, Additional history exists DTaP/TDaP/Td (2 - Td or Tdap) 10/21/2032 10/21/2022 Zoster Completed 07/17/2022, 09/02/2021 Pneumococcal Vaccine 50+ Completed 04/14/2023 Hepatitis B Vaccine Aged Out No longe r eligible based on patient's age to complete this topic Meningococcal B Vaccine Aged Out No l onger eligible based on patient's age to complete this topic Insurance [facility] [place] [address]
--- OUTSIDE RECORDS SUMMARY | 2025-05-25 10:03 | XMS_ITS | Clinical Summary ---
Author Organization [facility] Address [address] [place] [address] Care Team Providers Care Medical Center Representative Name Role Phone Kendall Morley MD Primary Care Provider [phone] Allergies Active Allergy Reactions Criticality Noted Date Comments Povidone Iodine Unknown - Patient st ates they do not know rxn details Low 09/14/2016 Medications Calcium Carb-Cholecalci ferol 1000-800 MG-UNIT tablet Take 1 tablet by mouth 1 (one) time each day. 09/22/1993 Active butalbital-acet aminophen-caffe ine (Fioricet) 50-300-40 MG capsule Take by mouth. Active Cetirizine HCl (ZyrTEC ALLERGY) 10 MG capsule Take by mouth. Active famotidine (Pepcid) 20 MG tablet Take 0.5 tablets (10 mg) by mouth. Active fluticasone (Flonase Allergy Relief) 50 MCG/ACT nasal spray 1 (one) time each day. 09/14/2016 Active lamoTRIgine (LaMICtal) 150 MG tablet 2 (two) times a day. Active levothyroxine (Synthroid) 100 MCG tablet 09/14/2016 Active losartan (Cozaar) 50 MG tablet 07/28/2023 Active olopatadine (Pataday) 0.2 % ophthalmic solution 1 drop 1 (one) time each day. Active denosumab (Prolia) 60 MG/ML injection Inject 1 mL (60 mg) under the skin 1 (one) time. Active Active Problems Problem Noted Date Diagnosed Date Osteoarthritis of left glenohumeral joint 2022 Encounters Date Type Department Care Team Description 05/23/2025 10:00 AM EDT Office Visit [facility] [address] [place] [address] Ginna Michelle Dental calculus (Primary Dx) 05/23/2025 Travel from Last 3 Months Family History Medical History Relation Name Comments Diabetes Father Hypertension Father Other cancer Father Diabetes Mother Hypertension Mother Other cancer Mother Relation Name Status Comments Father Mother Social History Tobacco Use Types Packs/Day Years Used Date Smoking Tobacco: Never Comments Unknown Sex and Gender Information Value Date Recorded Sex Assigned at Female 05/27/2023 10:19 AM EDT Legal Sex Female 6:11 PM EDT Gender Identity Not on file Sexual Orientation Not on file Last Filed Vital Signs Vital Sign Reading Time Taken Comments Blood Pressure 136/85 05/23/2025 10:02 AM EDT Pulse 66 05/23/2025 10:02 AM EDT Temperature - - Respiratory Rate - - Oxygen Saturation - - Inhaled Oxygen Concentration - - Weight 58.1 kg (128 lb) 05/27/2023 10:34 AM EDT Height 170.2 cm (5' 7 ) 05/27/2023 10:34 AM EDT Body Mass Index 20.05 05/27/2023 10:34 AM EDT Plan of Treatment Upcoming Encounters Date Type Department Care Team (Late st Contact Info) Description 11/27/2025 11:00 AM EST Office Visit [facility] [address] [place] [address] Ginna Michelle Health Maintenance Due Date Last Done Comments [facility]-Bone Density Scan 1958 [facility]-Depression Screening 1958 [facility]-Hepatitis C Screening 1958 [facility]-Medicare Annual Wellness (AWV) 1960 [facility]-/Child/Adol SDOH Screenings 1958 [facility]- SDOH Screenings 1976 [facility]-Adult SDOH Screenings 1976 CT Colonography 2003 Colonoscopy 2003 FIT-DNA 2003 FIT 2003 FOBT 2003 Sigmoidoscopy 2003 [facility]-Colorectal Cancer Screening 2003 [facility]-Breast Cancer Screening 2008 Dental X-Ray: Full Mouth 11/26/2024 11/25/2021 DDB-BNVPV-22 Vaccine (7 - Moderna risk season) 2025 10/12/2024, 08/14/2023, 09/30/2022, Additional history exists [facility]-Influenza Vaccine (#1) 07/09/202510/02, 08/19/2023, 08/21/2022, Additional history exists Dental X-Ray: Bitewings 11/16/2025 11/15/2024, 08/10 Dental Oral Exam 11/24/2025 05/23/2025, 06/2025, 03/28/2024, Additional history exists Dental Prophylaxis 11/24/2025 05/23/2025, 0 11/15/2024, 03/28/2024, Additional history exists [facility]-DTaP,Tdap,and Td Vaccines (2 - Td or Tdap) 10/21/2032 10/21/2022 [facility]-Zoster Vaccines Completed 07/17/2022, [facility]-Pneumococcal Vaccine: 50+ Years Completed 04/14/2023 [facility]-RSV Vaccine: 60+ Years or Completed 10/23/2024 HPV Vaccines Aged Out No longer eligi ble based on patient's age to complete this topic [facility]-HIB Vaccines Aged Out No longer e ligible based on patient's age to complete this topic [facility]-Hepatitis A Vaccines Aged Out No longer eligible based on patient's age to complete this topic [facility]-IPV Vaccines Aged Out No longer e ligible based on patient's age to complete this topic [facility]-Rotavirus Vaccines Aged Out No lo nger eligible based on patient's age to complete this topic Medical Devices Implanted Type Area General Supervisor Device Identifier Shelf Expiration Date Model / Serial / Lot [facility]-06/25 Implanted:Qty: 1 on 06/25/2022 by Danitza Tom DDS Cap Maxilla [employer] [facility] 10/21/2026 / / [id number] Description:Erin RIOJAS Zeinab sure Cap H 0.4mm, Ti [facility]-06/25 Implanted:Qty: 1 on 06/25/2022 by Danitza Tom DDS Implant Maxilla [employer] [facility] 01/20/2027 / / [id number] Description:Straumann TLX SP implant SP/WT 6.5mm WT, SLActive 8mm, Roxolid Procedures Procedure Name Priority Date/Time Associated Diagnosis Comments PERIODIC ORAL EVALUATION - ESTABLISHED PATIENT Routine 05/23/2025 10:00 AM EDT Dental calculus PROPHYLAXIS - ADULT Routine 05/23/2025 1 0:00 AM EDT Dental calculus BITEWINGS - 4 RADIOGRAPHIC IMAGES Routine 11/15/2024 11:00 AM EST Dental plaque PANORAMIC RADIOGRAPHIC IMAGE Routine 11/25/2021 4:30 PM EST Visit for dental examination from Last 3 Months or Most Recently Relevant to Health Maintenance [place] [address] [facility] [place] [facility] [employer] Care Teams Medical Center Representative Relationship Specialty Start Date End Date Kendall Morley MD [address] [place] [id number] PCP - General 03/21/21
--- OUTSIDE RECORDS SUMMARY | 2025-05-25 10:03 | XMS_ITS | Encounter Summary ---
Author Organization [facility] Address [address] [place] [address] Care Team Providers Care Drainage Engineer Name Role Phone Kendall Morley MD Primary Care Provider [phone] Encounter Details Date Type Department Care Team (Latest Contact Info) Description 05/23/2025 Travel Social History Tobacco Use Types Packs/Day Years Used Date Smoking Tobacco: Never Comments Unknown Sex and Gender Information Value Date Recorded Sex Assigned at Female 05/27/2023 10:19 AM EDT Legal Sex Female 6:11 PM EDT Gender Identity Not on file Sexual Orientation Not on file documented as of this encounter Plan of Treatment Upcoming Encounters Date Type Department Care Team (Late st Contact Info) Description 11/27/2025 11:00 AM EST Office Visit [facility] [address] [place] [phone] Ginna Michelle documented as of this encounter Visit Diagnoses Not on filedocumented in this encounter Additional Health Concerns Assessment Noted Time A fall risk assessment has been complete d for the patient 05/27/2023 10:34 AM EDT A Body Mass Index follow-up plan has been documented for the patient 05/23/2025 12:01 PM EDT documented as of this encounter Care Teams Drainage Engineer Relationship Specialty Start Date End Date Kendall Morley MD [address] [place] [id number] PCP - General 03/21/21 documented as of this encounter
--- OUTSIDE RECORDS SUMMARY | 2025-05-25 10:03 | XMS_ITS | Patient Health Record ---
Author Organization [facility] Address [address] [place] [address] [place] [address] Care Team Providers Care Heating And Ventilating Tender Name Role Phone Kendall Morley Primary Care Provider Migration, Provider Unavailable Unavailable Allergies Allergen (clinical drug ingredient) Drug/Non Drug Allergy documented on EMR Reaction Allergy Type Onset Date Status povidone-iodine Betadine Unknown Drug Allergy A ctive Medications Medication SIG (Take, Route, Frequency, Duration) Notes Start Date End Date Status LaMICtal 25 MG take 3 tablets twice a day orally 2 times a day; Duration: 90 days Active Ibuprofen 800 MG 1 tab(s) orally 3 times a day; Duration: 90 days Active Losartan Potassium 50 MG 1 tab(s) orally once a day; Duration: 90 days Active Acyclovir 800 MG 1 tab(s) orally 5 times a day prn; Duration: 90 days prn 10/16/2015 Active Terbinafine HCl 250 MG 1 tablet Orally Once a day; Duration: 90 days 04/25/2025 Active Synthroid 100 MCG 1 tab(s) orally once a day; Duration: 90 days Active Ciprofloxacin-dexAME THasone 0.3-0.1 % 4 drops into affected ear Otic Twice a day; Duration: 7 days 04/25/2025 Active Voltaren Arthritis Pain 1 % as directed applied topically 1-2 times a day Active Ambien 5 MG 1 tab(s) orally once a day (at bedtime); Duration: 90 days prn 04/14/2023 Active Acetaminophen ER 650 MG 1 tab orally prn Active Centrum THERAPEUTIC MULTIPLE VITAMINS WITH MINERALS 1 TAB(S) ORALLY ONCE A DAY *Please review and pick correct strength-formulat ion from [employer] options. If intended option is not shown, discontinue and re-order from [employer] Search* Active Prolia 60 MG/ML as directed subcutaneously every 6 months; Duration: 12 days 10/18/2023 Active Osdiwcmboz-HLDM-Atvh eine 50-325-40 MG 2 tabs orally twice a day; Duration: 90 days As needed prn 04/25/2025 Active PATADAY ONCE DAILY RELIEF 0.2% 1 GTT IN EACH AFFECTED EYE ONCE A DAY prn *Please review for potential replacement for e-prescription and drug interaction check* Active EpiPen 2-Melchor 0.3 MG/0.3ML as directed intramuscularly once; Duration: 1 days 04/19/2024 Active Vitamin D3 25 MCG 1 tab(s) orally once a day; Duration: 90 days Active Calcium Citrate 600-630MG 1 TAB(S) ORALLY 2 TIMES A DAY; Duration: 90 DAYS *Please review and pick correct strength-formulat ion from [employer] options. If intended option is not shown, discontinue and re-order from [employer] Search* Active Flonase Allergy Relief 50 MCG/ACT 2 sprays intranasally once a day; Duration: 90 days 10/16/2015 Active ZyrTEC Allergy 10 MG 1 tab(s) orally onc e a day prn; Duration: 90 days Active Pepcid 20 MG 1 tab(s) orally 2 times a day; Duration: 90 days prn Active Immunizations Vaccine Route Administration Date Status Comme nts Prevnar PCV-20 (Pneumococcal conjugate 20) IM Intramuscular 04/14/2023 Administered Influenza-Fluzone 3+years (NON-MEDICARE) IM Intramuscular 07/16/2017 Administered Flublok IM Intramuscular 08/22/2020 Administered Problems Problem Type SNOMED Code ICD Code Onset Dates Problem Status W/U Status Risk Notes Problem Age-related osteoporosis (933507873) Age-related osteoporosis without current pathological fracture (M81.0) Active confirmed Problem Seizure (33393566) Seizure (R56.9) Active confirmed Problem Vitamin D deficiency (41860566) Vitamin D deficiency (E55.9) Active confirmed Problem Acquired hypothyroidism (804738090) Acquired hypothyroidism (E03.9) Active confirmed Problem Primary osteoarthritis (971241554) Primary osteoarthritis involving multiple joints (M15.0) Active confirmed Problem History of polyp of colon (situation) (027638659) History of colon polyps (Z86.010) Active confirmed Problem Insomnia (827260757) Insomnia, unspecified type (G47.00) Active confirmed Problem Left rotator cuff syndrome (695407844140989) Rotator cuff syndrome of left shoulder (M75.102) Active confirmed Problem Cluster headache syndrome (746846441) Migraine-cluster headache syndrome (G44.009) Active confirmed Problem Allergic rhinitis caused by pollen (24361230) Seasonal allergic rhinitis due to pollen (J30.1) Active confirmed Problem Primary hypertension (61123902) Primary hypertension (I10) Active confirmed Vital Signs Heart Rate 80 /min 04/25/2025 Temperature 97.7 degrees Fahrenheit 04/25/2025 Blood pressure diastolic 72 mm Hg 04/25/2025 Height 5 ft 6 in in 04/25/2025 Blood pressure systolic 136 mm Hg 04/25/2025 Weight 120 lbs 04/25/2025 BMI 19.37 kg/m2 04/25/2025 Encounters Encounter Location Date Provider Diagnosis [facility] [address] [place], [place] [address] 02/10/2025 Provider Migration Acute non-recurrent maxillary sinusitis J01.00 and Primary hypertension I10 [facility] [address] [place], [place] [address] 10/23/2024 Kendall Morley Primary osteoarthrit is involving multiple joints M15.0 ; Migraine-cluster headache syndrome G44.009 and Immunization due Z23 [facility] [address] [facility] [address] [place], [place] [address] 11/27/2024 Kendall Morley Acute non-recurrent maxillary sinusitis J01.00 [facility] [address] [facility] [address] [place], [place] [address] 04/25/2025 Kendall Morley Primary hypertension I10 ; Seizure R56.9 ; Acquired hypothyroidism E03.9 ; Primary osteoarthritis involving multiple joints M15.0 ; Migraine-cluster headache syndrome G44.009 ; Onychomycosis B35.1 ; Otalgia, bilateral H92.03 and Routine medical exam Z00.00 [facility] [address] [address] 11/17/[address] [facility] [address] [facility] [place] [address] 04/25/2025 Kendall Morley Migraine-cluster headache syndrome G44.009 Assessments Encounter Date Diagnosis (ICD Code) Assessment Notes Treatment Notes Treatment Clinical Notes Section Notes 11/27/2024 Acute non-recurrent maxillary sinusitis (ICD-10 - J01.00) Treat as noted. I do think headache is related to the sinus infection. She is really maxed out on pain control medications. Recommended Medrol Dosepak. Somewhat resistant but she will pick it up and see if she wants to try it. I think this will help a lot with the pressure sensation in the throbbing 04/25/2025 Seizure (ICD-10 - R56.9) Has had no spells recently. On lamotrigine. Not a contraindication to diving. Will check levels. 04/25/2025 Primary hypertension (ICD-10 - I10) Overall doing very nicely, good blood pressure control. Renal function ordered for next lab draw. No concerns at this point. 04/25/2025 Migraine-cluster headache syndrome (ICD-10 - G44.009) 02/10/2025 Acute non-recurrent maxillary sinusitis (ICD-10 - J01.00) 02/10/2025 Primary hypertension (ICD-10 - I10) 10/23/2024 Primary osteoarthritis involving multiple joints (ICD-10 - M15.0) Long discussion about her OA issues. is very functional, continues to do PT programs and is well aware of therapeutic options. Suggested going up on Tylenol to 1000 mg in the morning, right after lunch and then using Fioricet as needed's night which would keep her below the 4000 mg limit. She will try this. Consider alternative therapies such as colchicine if this does not help given her wish to avoid NSAIDs 10/23/2024 Migraine-cluster headache syndrome (ICD-10 - G44.009) As needed use of Fioricet. Other medicines have been ineffective, she has been on this for quite a while. Patient has been compliant with our office and [place] regulations r.e. meds. No concerns on my part about diversion or misuse. Labs and Rj reports reviewed and are appropriate. 10/23/2024 Immunization due (ICD-10 - Z23) 04/25/2025 Acquired hypothyroidism (ICD-10 - E03.9) Follows [...] screening negative. Lifelong non-smoker Plan Of Treatment Pending Test Test Name Order Date H-MISC TEST 11/18/2015 M-Complete Blood Count Auto Diff 025 M-Comprehensive Metabolic Panel 04/25/20 25 M-Lipid Panel 04/25/2025 M-Vitamin D 25 Hydroxy 01/21/2021 M-Lamotrigine (Lamictal) 04/25/2025 Future Test Test Name Order Date H-VITAMIN B12 12/15/2016 Next Appt Details Provider Name:Kendall Morley, 10/29/2025 09:00:00 AM, [address] [place] [facility] [address] [facility], [address], [place], [address], Insurance Providers Payer Name Payer Address Payer Phone Subscriber Number Group Number Insured Name Patient Relationship to Insured Coverage Start Date Coverage End Date [place] [address] [place] [address] [id number] Sarai Dalton Self - patient is the insured [facility] CLAIMS [address] [place] [address] [id number] Krystle Sarai Self - patient is the insured Medical (General) History Medical History History ICD Code Migraine Headaches - use p.r.n. ibuprofe n and rare Fioricet. Hyper thyroid - had a hot no dule resected, then was treated with Tapazole for 2 years, currently hypothyroid Ostetopenia - could not tolerate bisphos phonate therapy Seasonal Allgeries - mostly ocular sympt oms Seizure- isolated single sei jakob in 2007, cause unknown, had one EEG with abnormal waves, placed on Lamictal since that time with no seizures Arthritis - discomfort and low back and in fingers with overactivity Normal mammogram 12/28 and 10/28 and 01/28 DEXA 07/29 with osteoporosis Normal colonoscopy 12/2023 Surgical History Surgery Date(Month/Year) Ectopic right 04/07/1984 D&C miscarriage 09/27/1992 thyroidectomy right 01/25/1996 tubal ligation 01/25/1996 D&C polyp 06/29/1997 tonsillectomy 01/16/2011 Subscapularus Tendon Repair Left 04/01/20 05 Knee scope 09/28/2017 Colonoscopy 12/2023 Hospitalization History Reason Date(Month/Year) seizures 07/2008
--- OUTSIDE RECORDS SUMMARY | 2025-05-25 10:04 | XMS_ITS | Data Portability ---
Author Organization JESICA PRASHANTH Dom[facility] [place] [facility] Address [address] [facility] [address] [place] [address] Care Team Providers Care Aircraft Inspection Record Clerk Name Role Phone KEITHGRACIELA KENDALL Primary Care Provider Assessment No assessment recorded. Plan of Treatment Reminders Order Date Submit Date Provider Last Modified By Organization Details Last Modified Time Details Appointments None record ed. Lab None record ed. Referral None record ed. Procedures None record ed. Surgeries None record ed. Imaging None record ed. Medication Orders None record ed. Patient TargetsNo targets recorded. Patient InstructionsNo instructions recorded. Reason for Referral None Reported. Results Created Date Observation Date Name Description Value Unit Range Abnormal Flag Note LastModifiedBy Organization Detail LastModifiedTime 01/01/20 22 12/31/2021 XR, hand, 3 or more view Evette guzman [facility] [address] [place] [address] [place] russ[place] Name: FRANCHESCA wells : [birth year] 56 Jennifer wells Orderi ng Provid er: STEPHE N C SIDNEYK Y EXAM DATE: 2021 EXAM: XR RT HAND 3 VIEWS HISTOR Y: Chroni c right hand pain. COMPAR NICOLLE: None. FINDIN GS: There are severe degene rative change s at the first carpom etacar pal joint, and mild degene rative change s in the trisca phe joint and radioc arpal joint. There is an ossifi c body betwee n the first and second metaca rpal bases. There are mild diffus e degene rative change s in the interp halang eal joints and minima l to mild degene rative change s in the metaca rpopha langea l joints . No fractu re is identi fied. IMPRES TARSHA: 1. There are severe degene rative change s in the right first carpom etacar pal joint. Interp reted By: Tawana oseguera MD Electr on ly Signed By: Tawana oseguera MD on 022 7:41 AM DBA_BACKFIL_ [facility] [address] , [place], [address], 05/14/2022 03:50:54 Result Notes Documentation Provider Name and Address Organization Details Recorded Time Xr, Hand, 3 Or More View : [facility] [address] [place] [address] Patient Name: SARAI DALTON Patient : 1960 Patient Ordering Provider: KENDALL GEORGE EXAM DATE: 12/31/2021 EXAM: XR RT HAND 3 VIEWS HISTORY: Chronic right hand pain. COMPARISON: None. FINDINGS: There are severe degenerative changes at the first carpometacarpal joint, and mild degenerative changes in the triscaphe joint and radiocarpal joint. There is an ossific body between the first and second metacarpal bases. There are mild diffuse degenerative changes in the interphalangeal joints and minimal to mild degenerative changes in the metacarpophalangeal joints. No fracture is identified. IMPRESSION: 1. There are severe degenerative changes in the right first carpometacarpal joint. Interpreted By: Misha Carey MD ALL GEORGE MD [address] [place] [address], [phone], [facility] 01/01/2022 12:21:17 Problems Name Problem SNOMED Code Status Onset Date Resolution Date Notes Provider Name and Address Organization Details Recorded Time Pain in left knee Active 2015 From Automated Load;Provi donny: Drake Cuellar;Sta tus: Active Not Available [facility] 7 06:46:11 Chondromal acia of patella 60611978 Active 2015 From Automated Load;Provi donny: Alisa, Drake;Sta tus: Active Not Available [facility] 7 07:08:06 Problem Notes None recorded. Medical Equipment None Reported. Allergies Allergen ID Allergen Name Allergen Category Reaction Reaction Severity Criticality Documentation Date Start Date Code Code System Note Provider Name and Address Organization Details Recorded Time 207307 Betadine medicatio n Not available Not available Not available 03/31/20172015 0 RxNorm Comme nt: Creat ed By: Chandler Weber eated Date: 2015 9:17: 04 AM; Not Available [facility] 7 03:49:06 Medications Name Sig Start Date Stop Date Status Note LastModified by Organization Details LastModified Time Evista 60 mg tablet active Duration: 10 days;Medicat ion Description: raloxifene; Route:oral; refills:0; Quantity:30 tablet Not Available Not Available Not Available Levoxyl 100 mcg tablet Daily active Duration: 30 days;Frequen cy: daily;Medica tion Description: levothyroxin e; Dosage:1; Route:oral; refills:0; Quantity:30 tablet Not Available Not Available Not Available Motrin IB 200 mg tablet Every four hours active Duration: 10 days;Frequen cy: q4h;Medicati on Description: ibuprofen; Route:oral; refills:0; Quantity:120 Not Available Not Available Not Available Zyrtec 10 mg tablet active Duration: 10 days;Medicat ion Description: cetirizine; Route:oral; refills:0; Quantity:30 tablet Not Available Not Available Not Available Lamictal 150 mg tablet Two times a day active Duration: 10 days;Frequen cy: bid;Medicati on Description: lamotrigine; Route:oral; refills:0; Quantity:60 tablet Not Available Not Available Not Available calcium active Medication Description: calcium carbonate; Route:oral; refills:0 Not Available Not Available Not Available Augmentin active Not Available Not Fabby ilable Not Available Fioricet 50 mg-300 mg-40 mg capsule active Medication Description: acetaminophe n/butalbital /caffeine; Route:oral; refills:0 Not Available Not Available Not Available Flonase Allergy Relief 50 mcg/actuat ion nasal spray,susp ension Daily active Frequency: daily;Medica tion Description: fluticasone nasal; Dosage:1 spray; Route:nasal; refills:0; Quantity:1 spray Not Available Not Available Not Available Vitals Date Recorded Body height Body mass index (BMI) Body weight Provider Name and Address Organization Details Last Updated DateTime 12/06/2023 167.64 cm 20.7 kg/m2 82323.82 g Agatha Rock [facility] 12/06/2023 10:35:16 Date Recorded Body height Body mass index (BMI) Body weight Provider Name and Address Organization Details Last Updated DateTime 12/31/2021 170.18 cm 20.4 kg/m2 44121.01 g Isabelle Ahn [facility] 12/31/2021 17:48:46 Social History None recorded. Functional Status None recorded. Mental Status None recorded. Family History Nothing Reported. Medical History No medical history recorded. Gynecological HistoryNo gynecological history recorded. Obstetrics History GPAL:G 0 P 0 0 0 0 Past Encounters Encounter ID Performer Location Encounter Start Date Encounter Closed Date Diagnosis/Indication Diagnosis SNOMED-CT Code Diagnosis ICD10 Code Diagnosis Note [id number] KENDALL GEORGE MD [facility] [address] [place] [address] 12/31/2021 17:19:20 12/31/2021 18:14:36 Idiopathic osteoarthritis 980237815 M19.91 Right long finger MP joint, would benefit from injection, she wants to watch it for now. Discussed therapy, nonsteroid al anti-infla mmatories, surgical management none of which sound great, she will follow-up as needed. X-rays right hand: [id number] KENDALL GEORGE MD [facility] [address] [place] [address] 12/06/2023 10:27:56 12/06/2023 10:43:55 Paronychia of finger 432362139 L03.019 Status post drainage and on antibiotic s. If he continues to get more red or swollen then they will call and I will switch her Augmentin to Bactrim, otherwise continue Augmentin for total of a week and then discontinu e it. Follow-up as needed. If any fluid collection s appear or significan t swelling then we can drain the paronychia with or without nail plate removal in the office. Health Concerns Section Related Observation LastModified by Organization Detai ls LastModified Time None Recorded Concern Status LastModified by Organization Details LastModified Time None Recorded Advance Directives Directive None Recorded Payers Insurance Date Sequence Insurance Name Policy Number Policy Boucher Covered Member ID Boucher Member ID Guarantor Name 12/06/2023 1 [place] ([place]ARE[place] Sarai Dalton [id number] Sarai Gleasontebrigitte 12/06/2023 2 FOR LIFE () Roberto Carlos Dalton [id number] Sarai Melendez Pettebrigitte 12/06/2023 2 FOR LIFE ( - MEDICARE SUPPLEMENT) Sarai Dalton [id number] Sarai Melendez Pettey 12/06/2023 1 FOR LIFE ( - MEDICARE SUPPLEMENT) Sarai Gleasontebrigitte [id number] Sarai Gleasontebrigitte Notes Date Note Type Note Provider Name and Address Organization Details Recorded Time 12/31/2021 text/html Consult requeste d by: [place] Care Physician: Kendall Morley MD Hand dominance: LeftLocation: Right Hand Pain level: 0 /10 can increase to 5/10 Date of injury:Duration:ons et: 1 months Recent Surgery: NoProcedure:Date of surgery:Duration: In office procedure? No Previous upper extremity surgery? NoProcedure:Approxi mate date of surgery:Surgeon (if known):Currently employed?: RetiredEmployer:Occ upation: Are they currently working? No Is this injury associated with a Workers Compensation claim? No Patient arrived in: n/a Lifestyle Block Farmer Strength: right: left: Ms. Dalton arrives for a nodule of the right hand located on the on the third MCP joint. Pt reports pain with increased activity. Pt denies injury. KENDALL GEORGE MD [address] [place] [address], [phone], [facility] 12/31/2021 18:46:39 12/06/2023 text/html Consult requeste d by: self/husbandPrimary Care Physician: Hand dominance: LeftLocation: Right RF Pain level: 5 /10 12/02/2023uration: Recent Surgery: NoProcedure:Date of surgery:Duration: In office procedure? No Previous upper extremity surgery? NoProcedure:Approxi mate date of surgery:Surgeon (if known): Have you or any of your immediate family members been seen by our hand surgeons before? Yes also is Douglas Dalton- in [place] Currently employed?: Retired Patient arrived in: n/a Lifestyle Block Farmer Strength: right: left:Ms. Dalton is here for rt RF nail bed pain. She first noticed the finger getting really sore and red last . No known injury. Her is a Dr in [place], started her on antibiotics for the past 4.5 days. They helped but not 100%. KENDALL GEORGE MD [address] [place], [address], [facility] 12/06/2023 10:43:21 OBGyn Episode No OBEpisode recorded.
[2025-05-25] MEDS: DENOSUMAB 60 MG/ML SYRINGE SUBCUT (10:08)
[2025-05-25 10:10] VITALS: BP 118/65; PULSE 72; O2SAT 99
== END 2025-05-25 10:15 | disposition home or self-care (01) ==
LOC: INF 10:00
PROVIDERS: PCP Internal Medicine Adolescent Medicine; Visit Provider Internal Medicine Adolescent Medicine
DX: M81.0 Age-related osteoporosis without current pathological fracture (principal)
CPT/HCPCS: 96372; J0897

== ENCOUNTER 2025-08-09 08:16 | Outpatient (CLI) | payer MEDICARE, OTHER, SELFPAY ==
--- OUTSIDE RECORDS SUMMARY | 2025-02-10 17:30 | XMS_ITS ---
Author Organization [facility] Address [address] [place] [address] Care Team Providers Care Suede Cleaner Name Role Phone PeymanKendall Primary Care Provider Migration, Provider Unavailable Unavailable Allergies Allergen (clinical drug ingredient) Drug/Non Drug Allergy documented on EMR Reaction Allergy Type Onset Date Status povidone-iodine Betadine Unknown Drug Allergy A ctive REASON FOR VISIT [facility] To [facility] Conversion Encounter Medications Medication SIG (Take, [...] once a day; Duration: 90 days Active Prdnzllnjy-OCZM-Iwee eine 50-325-40 MG 2 tabs orally twice a day; Duration: 90 days prn 10/23/2024 Active EpiPen 2-Melchor 0.3 MG/0.3ML as directed intramuscularly once; Duration: [...] review and pick correct strength-formulat ion from [employer] options. If intended option is not shown, [...] review and pick correct strength-formulat ion from [employer] options. If intended option is not shown, discontinue and re-order from Quick Search* Active Acetaminophen ER 650 MG 1 tab orally prn Active Voltaren Arthritis Pain 1 % as directed applied topically 1-2 times a day Active Encounters Encounter Location Date Provider Diagnosis [facility] [place] [address] [facility] [address] [place] [address] 02/10/2025 Provider Migration Acute non-recurrent maxillary sinusitis [...] [address], [address], [place], [address], Progress Notes * Asim ORDONEZOB: [birth year] (65 yo F)Acc No.[id number]:02/10/2025 Patient: Sarai WOOTEN Provider: Vania sims Migration :1960 A ge:64 Y S ex:Female Date:02/10/2025 Address:[address] [place] [address], [place], [id number] Pcp:Kendall Morley Subjective: * Chief Complaints: * [facility] . [facility] * Medical History: * Medications: T terry Voltaren Arthritis Pain 1 % Gel as directed applied topically 1-2 times a day , Taking Acetaminophen ER 650 MG Tablet Extended Release 1 tab orally prn , Taking Centrum THERAPEUTIC MULTIPLE VITAMINS WITH MINERALS TABLET 1 TAB(S) ORALLY ONCE A DAY , Notes to Pharmacist: *Please review and pick correct strength-formulation from [employer] options. If intended option is not shown, [...] *Please review and pick correct strength-formulation from [employer] options. If intended option is not shown, [...] orally 2 times a day , Taking Lpogmosjpf-AVWP-Bvqqghzt 50-325-40 MG Tablet 2 tabs orally twice [...] Electronic signature of Prov ider Migration on 08/09/2025 at 08:21 AM EDT Sign off status: Pending * Provider: Vanai sims Migration Date: 0 02/10/2025 Generated for Kana rees/John/Tonya on: 1 08:21 AM EDT
--- OUTSIDE RECORDS SUMMARY | 2025-08-09 08:21 | XMS_ITS | Clinical Summary ---
Author Organization [facility] Address [address] [place] [address] Phone Care Team Providers Care Cryptozoologist Name Role Phone Unavailable Primary Care Provider Unavailabl e Allergies Active Allergy Reactions Criticality Noted Date Comments Povidone-Iodine Other (See Comments) Low 03/30/2005 Skin irritation Soap Other (See Comments) 11/11/2017 Medications lamoTRIgine (LAMICTAL) 25 mg Oral Tablet Take 3 Tabs by mouth 2 times daily. 01/03/2021 Active ergocalciferol, vitamin D2, (VITAMIN D2 ORAL) Take by mouth. 6242-1436 mg daily Active calcium carbonate 650 mg [...] mouth. Active fluticasone propionate (FLONASE NASL) 1 [place] by Nasal route as needed. Active LEVOthyroxine (SYNTHROID) 100 mcg Oral TabletIndicatio ns:Hypothyroidi sm (acquired) TAKE 1 TABLET DAILY 100 Tablet 1 04/04/2025 Active Active Problems Problem Noted Date Diagnosed Date Age-related osteoporosis wit hout current pathological fracture 07/30/2021 Hypothyroidism (acquired) 01/22/2021 Vitamin D deficiency 01/22/2021 Osteopenia after menopause 01/22/2021 Surgical History Surgery Date Site/Laterality Comments THYROID [...] Description 08/20/2025 11:00 AM EDT Office [facility] [address] [place] [phone] Billy Sarmiento MD [address] [place] [id number] Health Maintenance Due Date Last Done Comments Wellness Exam Medicare 1961 Hepatitis C Screening 1976 Breast Cancer Screening 1998 Cologuard 2003 Colon Cancer Screening 2003 Colonoscopy 2003 FIT 2003 Sigmoidoscopy 2003 Virtual Colonography 2003 Bone Density Screening 2023 COVID-19 Vaccine ( season) 2025 08/14/2023, 09/30/2022, 07/30/2021, Additional history exists Influenza [...] patient's age to complete this topic Insurance JESICA Limon [id number] [facility] MEDICARE [place] PART A AND B
--- OUTSIDE RECORDS SUMMARY | 2025-08-09 08:22 | XMS_ITS | Data Portability ---
Author Organization JESICA PRASHANTH Dom[facility] [place] [facility] Address [address] [facility] [address] [place] [address] Care Team Providers Care Test Car Driver Name Role Phone KEITHGRACIELA KENDALL Primary Care [...] hand, 3 or more view Evette guzman [facility] [address] [place] [address] [place] russell Name: FRANCHESCA wells : [birth year] [...] oseguera MD on 022 7:41 AM DBA_BACKFIL_ [facility] [address] , [place], [address], 05/14/2022 03:50:54 Result Notes Documentation Provider Name and Address Organization Details Recorded Time Xr, Hand, 3 Or More View : [facility] [address] [place] [address] Patient Name: SARAI DALTON Patient : 1960 [...] By: Misha Carey MD ALL GEORGE MD [address] [place] [address], [phone], [facility] 01/01/2022 12:21:17 Problems Name Problem SNOMED Code Status Onset Date Resolution Date Notes Provider Name and Address Organization Details Recorded Time Pain in left knee Active 2015 From Automated Load;Provi donny: Drake Cuellar;Sta tus: Active Not Available [facility] 7 06:46:11 Chondromal acia of patella 90460448 Active 2015 From Automated Load;Provi donny: [place], Drake;Sta tus: Active Not Available [facility] 7 07:08:06 Problem Notes None recorded. Medical Equipment None Reported. Allergies Allergen ID Allergen Name Allergen Category Reaction Reaction Severity Criticality Documentation Date Start Date Code Code System Note Provider Name and Address Organization Details Recorded Time 263197 Betadine medicatio n Not available Not available Not available 03/31/20172015 0 RxNorm Comme nt: Creat ed By: Chandler Weber eated Date: 2015 9:17: 04 AM; Not Available [facility] 7 03:49:06 Medications Name Sig Start Date [...] Updated DateTime 12/06/2023 167.64 cm 20.7 kg/m2 16469.82 g Agatha Rock [facility] 12/06/2023 10:35:16 Date Recorded Body height Body mass index (BMI) Body weight Provider Name and Address Organization Details Last Updated DateTime 12/31/2021 170.18 cm 20.4 kg/m2 24378.01 g Isabelle Ahn [facility] 12/31/2021 17:48:46 Social History None recorded. Functional Status None recorded. Mental Status None recorded. Family History Nothing Reported. Medical History No medical history recorded. Gynecological HistoryNo gynecological history recorded. Obstetrics History GPAL:G 0 P 0 0 0 0 Past Encounters Encounter ID Performer Location Encounter Start Date Encounter Closed Date Diagnosis/Indication Diagnosis SNOMED-CT Code Diagnosis ICD10 Code Diagnosis IMO Codes Diagnosis Note [id number] KENDALL GEORGE MD [facility] [address] [place] [address] 12/31/2021 17:19:20 12/31/2021 18:14:36 Idiopathic osteoarthritis 300300461 M19.91 Right long finger MP joint, would benefit from injection, she wants to watch it for now. Discussed therapy, nonsteroid al anti-infla mmatories, surgical management none of which sound great, she will follow-up as needed. X-rays right hand: [id number] KENDALL GEORGE MD [facility] [address] [place] [address] 12/06/2023 10:27:56 12/06/2023 10:43:55 Paronychia of finger 910564950 L03.019 Status post drainage and on antibiotic [...] Name 12/06/2023 1 [place] Sarai Dalton [id number] Sarai Gleasontey 12/06/2023 2 FOR LIFE () Roberto Carlos Rodriguezbrigitte [id number] Sarai Melendez Pettey 12/06/2023 2 FOR LIFE ( - MEDICARE SUPPLEMENT) Sarai Dalton [id number] Sarai Melendez Pettey 12/06/2023 1 FOR LIFE ( - MEDICARE SUPPLEMENT) Sarai Gleasontebrigitte [id number] Sarai Gleasontebrigitte Notes Date Note Type Note Provider Name and Address Organization Details Recorded Time 12/31/2021 text/html Consult requested by: [place] Care Physician: Kendall [...] Compensation claim? No Patient arrived in: n/a Analytics Architect Strength: right: left: Ms. Dalton arrives for a nodule of the right hand located on the on the third MCP joint. Pt reports pain with increased activity. Pt denies injury. KENDALL GEORGE MD [address] [place] [address], [phone], [facility] 12/31/2021 18:46:39 12/06/2023 text/html Consult requested by: self/husbandPrimary Care Physician: Hand dominance: LeftLocation: Right RF Pain level: 5 /10 12/02/2023uration: Recent Surgery: NoProcedure:Date of surgery:Duration: In office procedure? No Previous upper extremity surgery? NoProcedure:Approxi mate date of surgery:Surgeon (if known): Have you or any of your immediate family members been seen by our hand surgeons before? Yes also is Douglas Dalton- in [place] Currently employed?: Retired Patient arrived in: n/a Analytics Architect Strength: right: left:Ms. Dalton is here for rt RF nail bed pain. She first noticed the finger getting really sore and red last . No known injury. Her is a Dr in [place], started her on antibiotics for the past 4.5 days. They helped but not 100%. KENDALL GEORGE MD [address] [place], [address], [facility] 12/06/2023 10:43:21 OBGyn Episode No OBEpisode recorded.
--- OUTSIDE RECORDS SUMMARY | 2025-08-09 08:22 | XMS_ITS | Patient Health Record ---
Author Organization [facility] Address [address] [place] [address] [place] [address] Care Team Providers Care Solar Process Engineer Name Role Phone Kendall Morley Primary Care Provider [phone] Migration, Provider Unavailable Unavailable Allergies Allergen (clinical [...] review and pick correct strength-formulat ion from powervault options. If intended option is not shown, discontinue and re-order from [employer] Search* Active Prolia 60 MG/ML as directed subcutaneously every 6 months; Duration: 12 days 10/18/2023 Active Vmkritkirn-OVIA-Lxau eine 50-325-40 MG 2 tabs orally twice [...] review and pick correct strength-formulat ion from powervault options. If intended option is not shown, [...] W/U Status Risk Notes Problem Age-related osteoporosis (543869731) Age-related osteoporosis without current pathological fracture (M81.0) Active confirmed Problem Seizure (35652553) Seizure (R56.9) Active confirmed Problem Vitamin D deficiency (70053644) Vitamin D deficiency (E55.9) Active confirmed Problem Acquired hypothyroidism (296463891) Acquired hypothyroidism (E03.9) Active confirmed Problem Primary osteoarthritis (116562994) Primary osteoarthritis involving multiple joints (M15.0) Active confirmed Problem History of polyp of colon (situation) (059017510) History of colon polyps (Z86.010) Active confirmed Problem Insomnia (852779860) Insomnia, unspecified type (G47.00) Active confirmed Problem Left rotator cuff syndrome (028844147781481) Rotator cuff syndrome of left shoulder (M75.102) Active confirmed Problem Cluster headache syndrome (708669290) Migraine-cluster headache syndrome (G44.009) Active confirmed Problem Allergic rhinitis caused by pollen (61772920) Seasonal allergic rhinitis due to pollen (J30.1) Active confirmed Problem Primary hypertension (24590188) Primary hypertension (I10) Active confirmed Vital Signs Heart Rate 80 /min 04/25/2025 Temperature 97.7 degrees Fahrenheit 04/25/2025 Blood pressure diastolic 72 mm Hg 04/25/2025 Height 5 ft 6 in in 04/25/2025 Blood pressure systolic 136 mm Hg 04/25/2025 Weight 120 lbs 04/25/2025 BMI 19.37 kg/m2 04/25/2025 Encounters Encounter Location Date Provider Diagnosis [facility] [address] [place] [address] [place], [place] [address] 02/10/2025 Provider Migration Acute non-recurrent maxillary sinusitis J01.00 and Primary hypertension I10 [facility] [place] [address] [place] [address] [place], [place] [address] 10/23/2024 Kendall Morley Primary osteoarthrit is involving multiple joints M15.0 ; Migraine-cluster headache syndrome G44.009 and Immunization due Z23 [facility] [place] [address] [place] [address] [facility] [address] [place], [place] [address] 11/27/2024 Kendall Morley Acute non-recurrent maxillary sinusitis J01.00 [facility] [place] [address] [place] [address] [facility] [address] [place], [place] [address] 04/25/2025 Kendall Morley Primary hypertension I10 ; Seizure R56.9 ; Acquired hypothyroidism E03.9 ; Primary osteoarthritis involving multiple joints M15.0 ; Migraine-cluster headache syndrome G44.009 ; Onychomycosis B35.1 ; Otalgia, bilateral H92.03 and Routine medical exam Z00.00 [facility] [address] [address] 11/17/2024 Kendall Morley [facility] [address] [facility] [place] [address] 04/25/2025 Kendall Morley Migraine-cluster headache syndrome G44.009 Assessments Encounter Date Diagnosis (ICD Code) Assessment Notes Treatment Notes Treatment Clinical Notes Section Notes 10/23/2024 Primary osteoarthritis involving multiple joints (ICD-10 [...] has been compliant with our office and [place] regulations r.e. meds. No concerns on my part about diversion or misuse. Labs and Rj reports reviewed and are appropriate. 11/27/2024 Acute non-recurrent maxillary sinusitis (ICD-10 - J01.00) Treat as noted. I do think headache is related to the sinus infection. She is really maxed out on pain control medications. Recommended Medrol Dosepak. Somewhat resistant but she will pick it up and see if she wants to try it. I think this will help a lot with the pressure sensation in the throbbing 02/10/2025 Acute non-recurrent maxillary sinusitis (ICD-10 - J01.00) 02/10/2025 Primary hypertension (ICD-10 - I10) 04/25/2025 Seizure (ICD-10 - R56.9) Has had no spells recently. On lamotrigine. Not a contraindication to diving. Will check levels. 04/25/2025 Primary hypertension (ICD-10 - I10) Overall doing very nicely, good blood pressure control. Renal function ordered for next lab draw. No concerns at this point. 04/25/2025 Migraine-cluster headache syndrome (ICD-10 - G44.009) 04/25/2025 Acquired hypothyroidism (ICD-10 - E03.9) Follows endocrinology, clinically euthyroid 10/23/2024 Immunization due (ICD-10 - Z23) 04/25/2025 Primary osteoarthritis involving multiple joints (ICD-10 [...] Name:Kendall Morley, 10/29/2025 09:00:00 AM, [address] [place] [facility] [address] [facility], [address], [place], [address], Insurance Providers Payer Name Payer Address Payer Phone Subscriber Number Group Number Insured Name Patient Relationship to Insured Coverage Start Date Coverage End Date [place] [address] [place] [address] [id number] Sarai Dalton Self - patient is the insured [facility] CLAIMS [address] [place] [address] [id number] Sarai Dalton Self - patient is the insured Medical [...]
--- OUTSIDE RECORDS SUMMARY | 2025-08-09 08:22 | XMS_ITS | Clinical Summary ---
Author Organization [facility] Address [address] [place] [address] Care Team Providers Care Leisure Travel Agent Name Role Phone Kendall Morley MD Primary Care Provider [phone] Allergies Active Allergy Reactions Criticality Noted Date [...] [facility] [address] [place] [address] Ginna Michelle Dental calculus (Primary Dx) 05/23/2025 [...] [facility] [address] [place] [address] Ginna Michelle Health Maintenance Due Date Last Done Comments [facility]-Bone Density Scan 1958 [facility]-Depression Screening 1958 [facility]-Hepatitis C Screening 1958 [facility]-Medicare Annual Wellness (AWV) 1958 [facility]-Infant/Child/Adol SDOH Screenings 1958 [facility]- SDOH Screenings 1976 [facility]-Adult SDOH Screenings 1976 CT Colonography 2003 Colonoscopy 2003 FIT-DNA 2003 FIT 2003 FOBT 2003 Sigmoidoscopy 2003 [facility]-Colorectal Cancer Screening 2003 [facility]-Breast Cancer Screening 2008 Dental X-Ray: Full Mouth 11/26/2024 11/25/2021 [id number] Vaccine (7 - Moderna risk season) 2025 [...] this topic Medical Devices Implanted Type Area Picker Tender Helper Device Identifier Shelf Expiration Date Model / Serial / Lot [facility]-06/25 Implanted:Qty: 1 on 06/25/2022 by Danitaz Tom DDS Cap Maxilla Fonem[employer] [facility] 10/21/2026 / / [id number] Description:Erin RIOJAS Zeinab sure Cap H 0.4mm, Ti [facility]-06/25 Implanted:Qty: 1 on 06/25/2022 by Danitza Tom DDS Implant Maxilla [employer]umann [place] [facility] 01/20/2027 / / [id number] Description:Straumann [...] Recently Relevant to Health Maintenance [place] [address] [facility] [employer] Care Teams Leisure Travel Agent Relationship Specialty Start Date End Date Kendall Morley MD [address] [id number] PCP - General 03/21/21
[2025-08-09 08:52] LABS: Hematocrit 39.5 % (37.0-47.0); Hemoglobin 13.4 g/dL (12.2-16.2); Immature Granulocytes % 0.2 %; Mean Corpuscular HGB Conc 33.9 g/dL (31.8-35.4); Mean Corpuscular Hemoglobin 30.2 pg (27.0-31.2); Mean Corpuscular Volume 89.2 fl (81-99); Nucleated Red Blood Cells % 0 %; Platelet Count 179 K/mm3 (142-424); Red Blood Count 4.43 M/mm3 (4.20-5.40); Red Cell Distribution Width-SD 40.5 fL; White Blood Count 4.2 K/mm3 (4.8-10.8)
[2025-08-09 09:42] LABS: Magnesium 2.1 mg/dl (1.6-2.3); Phosphorous 3.6 mg/dl (2.5-4.5)
[2025-08-09 09:44] LABS: Alanine Aminotransferase 21 U/L (12-78); Albumin Level 4.1 g/dl (3.5-5.0); Albumin/Globulin Ratio 2.1 (1.1-1.8); Alkaline Phosphatase 88 U/L (38-126); Anion Gap 8.9 mEq/L (5-15); Aspartate Amino Transferase 29 U/L (14-36); Bilirubin,Total 0.4 mg/dl (0.2-1.3); Blood Urea Nitrogen 12 mg/dl (7-17); Calcium 9.2 mg/dl (8.4-10.2); Carbon Dioxide 32 mmol/L (22.0-30.0); Chloride 105 mmol/L (98-107); Cholesterol 174 mg/dl (140-200); Creatinine,Serum 0.80 mg/dl (0.52-1.04); Estimated Glomerular Filt Rate 72 ml/min (>60); GFR (African American) 87 ML/MIN (>60); Globulin 2.0 g/dL (1.3-3.2); Glucose 84 mg/dl (74-100); HDL Cholesterol 67 mg/dl (40-60); Potassium 3.9 mmoL/L (3.5-5.1); Sodium 142 mmol/L (136-145); Total Protein,Serum 6.1 g/dl (6.3-8.2); Triglycerides 78 mg/dl (30-150)
[2025-08-09 09:59] LABS: Free T4 (Free Thyroxine) 1.10 ng/dl (0.78-2.19)
[2025-08-09 10:01] LABS: 25-OH Vitamin D, Total 86.2 ng/mL (30-100)
[2025-08-09 10:14] LABS: Thyroid Stimulating Hormone 1.79 uIU/mL (0.465-4.68)
[2025-08-10 12:13] LABS: Triiodothyronine (T3) Free 2.9 pg/mL (2.0-4.4)
== END 2025-08-09 23:59 | disposition home or self-care (01) ==
LOC: LAB 08:18
PROVIDERS: PCP Internal Medicine Adolescent Medicine; Visit Provider Internal Medicine Endocrinology, Diabetes & Metabolism
DX: M81.0 Age-related osteoporosis without current pathological fracture (principal); I10 Essential (primary) hypertension; R56.9 Unspecified convulsions; E03.9 Hypothyroidism, unspecified; M15.0 Primary generalized (osteo)arthritis
CPT/HCPCS: 36415; 80053; 80061; 80175; 82306; 82523; 83735; 84100; 84439; 84443; 84481; 85025